=== PATIENT | female | born 1960 | race Caucasian/White ===

== ENCOUNTER 2017-01-22 14:24 | Inpatient (IN) | payer OTHER ==
[~2017-01-22] VITALS: Ht 162.6 cm; Wt 63.5 kg
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
--- NOTE | 2017-01-22 14:54 | NUR ---
CAROLINE DENNISON AT BEDSIDE FOR EVAL.
--- NOTE | 2017-01-22 14:54 | NUR ---
INCONTINENT CARE PROVIDED WHEN PT ARRIVED IN ROOM BELONGINGS PLACED IN BAGS FOR SECURITY WANDING
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
--- NOTE | 2017-01-22 15:28 | NUR ---
BLOOD DRAWN AND SENT
[2017-01-22 15:30] LABS: ABSOLUTE BASOPHIL COUNT 0.1 /CUMM (0.0-0.2); ABSOLUTE EOSINOPHIL COUNT 0.1 /CUMM (0.0-0.7); ABSOLUTE GRANULOCYTE CT 3.3 /CUMM (1.4-6.5); ABSOLUTE LYMPH COUNT 1.9 /CUMM (1.2-3.4); ABSOLUTE MONOCYTE COUNT 0.4 /CUMM (0.10-0.60); BASOPHIL % 1.2 % (0.0-2.0); EOSINOPHIL % 1.8 % (0-5); HEMATOCRIT 40.8 % (37-47); MEAN CORPUSCULAR HGB 31.7 PG (27.0-31.0); MEAN CORPUSCULAR HGB CONC 33.5 G/DL (33.0-37.0); MEAN CORPUSCULAR VOLUME 94.7 FL (81.0-99.0); MEAN PLATELET VOLUME 7.9 FL (7.4-10.4); PLATELET COUNT 286 /CUMM (130-400); RED BLOOD CELL CT 4.31 /CUMM (4.20-5.40); WHITE BLOOD CELL COUNT 5.8 /CUMM (4.8-10.8)
--- NOTE | 2017-01-22 15:57 | NUR ---
SST REDRAWN AND SENT TO LAB BY THIS MST
--- NOTE | 2017-01-22 17:00 | NUR ---
PT GIVEN FOOD TRAY AND 2 SODAS 2 BOTTLES OF WATER
--- NOTE | 2017-01-22 17:24 | NUR ---
PT SLEEPING AT THIS TIME WITH NORMAL RESP.
[2017-01-22 17:27] VITALS: BP 110/70
[2017-01-22 19:04] VITALS: BP 102/51
--- NOTE | 2017-01-22 19:05 | NUR ---
VSS PT TO BE MOVED TO REPORT GIVEN TO GINA CHILD
--- NOTE | 2017-01-22 21:06 | NUR ---
PT MEDICATED WITH MOTRIN 800MG FOR HEADACHE AND ZOFRAN 4MG ODT FOR NAUSEA. PT STATES THAT HER HEADACHE IS 8/10, REPORTS BEING SENSITIVE TO LIGHT AND SOUND, ANXIOUS AND TREMULOUS.
--- NOTE | 2017-01-22 21:26 | NUR ---
PT MEDICATED WITH ATIVAN 2MG FOR WITHDRAWAL SYMPTOMS. PT CALM AND COOPERATIVE, SITTER AT BEDSIDE.
[2017-01-22 22:40] VITALS: BP 138/70
--- NOTE | 2017-01-22 22:45 | NUR ---
PT STATES THAT HER HEADACHE IS BETTER. PT DRINKING ADEQUATE FLUIDS. PT REPORTS HIGH LEVEL OF ANXIETY. PT IS ANTICIPATING ADMISSION.
--- NOTE | 2017-01-22 23:04 | NUR ---
PT HAS BED ASSINGMENT 222-1
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
[2017-01-22] MEDS ORDERED: GABAPENTIN300 M2 PO (23:28)
[2017-01-22] MEDS ORDERED: NEXIUM40 M1 PO (23:28)
[2017-01-22] MEDS ORDERED: LEXAPRO20 M1 PO (23:29)
--- NOTE | 2017-01-22 23:48 | Admission Certification ---
Admission Certification Certification Statement - As attending physician, I certify that at the time of - admission, based on clinical presentation, severity of - symptoms, need for further diagnostic testing and - therapeutic interventions, and risk of adverse outcomes - without in-hospital treatment, in my clinical assessment, - this patient requires an acute hospital stay for a minimum - of two nights or longer. I have also considered psychsocial - factors such as support system, advanced age, financial - issues, cognitive issues, and failed out-patient treatments, - past re-admission history, safety of patient, and lack of - compliance as applicable. Specific rationale supporting this admission is: Alcohol detox.
[2017-01-23] VITALS (14 sets, daily range): BP systolic 108–144; BP diastolic 60–88
--- NOTE | 2017-01-23 02:28 | NUR ---
NURSING NOTE: PT ARRIVED TO [facility] VIA STRETCHER @ 0010. PT ALERT, ORIENTED, CALM, AND COOPERATIVE. NO FAMILY AT BEDSIDE. PT ORIENTED TO STAFF, ROOM, AND CALL [facility]. SCHEDUELED ATIVAN TAPER GIVEN. AWAITING OTHER MEDICATIONS FROM PHARMACY. RN WILL CONTINUE TO MONITOR.
[2017-01-23 08:10] LABS: ABSOLUTE BASOPHIL COUNT 0 /CUMM (0.0-0.2); ABSOLUTE EOSINOPHIL COUNT 0.2 /CUMM (0.0-0.7); ABSOLUTE GRANULOCYTE CT 3.2 /CUMM (1.4-6.5); ABSOLUTE LYMPH COUNT 1.9 /CUMM (1.2-3.4); ABSOLUTE MONOCYTE COUNT 0.5 /CUMM (0.10-0.60); BASOPHIL % 0.3 % (0.0-2.0); EOSINOPHIL % 3.2 % (0-5); GRANULOCYTE % 55.2 % (42.2-75.2); HEMATOCRIT 37.6 % (37-47); MEAN CORPUSCULAR HGB 32.1 PG (27.0-31.0); MEAN CORPUSCULAR HGB CONC 34.1 G/DL (33.0-37.0); MEAN CORPUSCULAR VOLUME 94.1 FL (81.0-99.0); MEAN PLATELET VOLUME 8.1 FL (7.4-10.4); PLATELET COUNT 208 /CUMM (130-400); RBC DISTRIBUTION WIDTH 15.8 % (11.5-14.5); RED BLOOD CELL CT 3.99 /CUMM (4.20-5.40); WHITE BLOOD CELL COUNT 5.7 /CUMM (4.8-10.8)
[2017-01-23 08:30] LABS: PT 9.4 SEC (9.4-12.5)
[2017-01-23] MEDS ORDERED: NEURONTIN300 M1 PO (10:20)
[2017-01-23] MEDS ORDERED: KLONOPIN2 M1 PO (10:20)
--- NOTE | 2017-01-23 10:38 | NUR ---
Referral received this am via electronic customs and border protection officer. This patient is a 56 year old woman, admitted to the hospital last evening for ETOH Detox. Patient is a [employer] member; request for admission authorization requested. Patient has been placed on CIWA; most recently with nausea and vomitting, tremors, anxiety, agitation and headaches. Has received 8.5mg ativan since presentation to the ED last evening. Will follow to better assess aftercare needs; motivation and interest.
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
[2017-01-24] VITALS (11 sets, daily range): BP systolic 110–138; BP diastolic 58–80
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
--- NOTE | 2017-01-24 12:41 | NUR ---
PT UNHAPPY ABOUT CHANGES IN CIWA ATIVAN SLIDING SCALE. FREQUENCY CHANGED TO Q4 THIS AM. PT CONTINUES TO COMPLAIN OF HEADACHES, NAUSEA, AND ANXIETY BUT HAS NO OBJECTIVE SIGNS OF DETOX. NO TREMORS NOTED AND STEADY GAIT, AMBULATING INDEPENDENTLY IN ROOM. PRN IV DOSE GIVEN ORDERED AND DR. TUTTLE PAGED PER PT'S REQUEST. DR. TUTTLE STATES HE WILL COME ASSESS PATIENT. WILL MONITOR.
--- NOTE | 2017-01-24 16:36 | NUR ---
PT AT 1616 CIWA SCORE 12. PT SITTING IN BED LEGS CROSSED. CONVERSING WITH THIS RN. ONCE PATIENT RECIEVED 1 MG IV PT QUESTIONED RN WHY 2MG NOT GIVEN. PTEDUCATED ON PROTOCOL FOR IV ATIVAN. PER PT" WHAT AM I SUPPOSED TO DO TO GET 2MG" PER PT " I WANT TO SEE THE DOCTOR I NEED 2MG" TOURS CAPTAIN CHARLIE CALLED AND NEW CIWA SCORED DONE PER TOURS CAPTAIN . NEW SCORE PER PT STATING INCREASING ANXIETY AND AGITATION OF 21. ADDITIONAL 1 MG GIVEN. TOURS CAPTAIN AWARE . WILL MONITOR
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
[2017-01-25] VITALS (12 sets, daily range): BP systolic 110–130; BP diastolic 60–88
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
--- NOTE | 2017-01-25 11:49 | NUR ---
1135- PT UNHAPPY WITH CHANGES IN ATIVAN ORDERS. DOES NOT WANT DECREASE IN ATIVAN TAPER AND DOES NOT WANT DECREASE IN PRN IV ATIVAN. PT STATES SHE NEEDS ATIVAN 2 MG IV AVAILABLE Q2 HOURS AND WANTS TO SPEAK TO MD. DR. GEOVANI RHODES NOTIFIED OF ABOVE. PER DR. RHODES, TAPER AND PRN ATIVAN CHANGES WERE REVIEWED WITH PT THIS MORNING AND ARE NOT TO BE CHANGED AT THIS TIME. MD TO COME TO BEDSIDE TO DISCUSS AGAIN WITH PT AFTER MORNING MEETING.
--- NOTE | 2017-01-25 13:07 | Event Note ---
Event Note Event Note: Spoke with patient yesterday EXTENSIVELY regarding her treatment regimen. Spent over 45 minutes explaining that Ativan per CIWA must be tapered appropriately and that the purpose of the protocol was to treat alcohol withdrawl and it was not appropriate to over dose medication as it can have deletrious side effects such as respiratory depression, somnolence and can cause dependence. On a q1 CIWA regimen pt had recieved 24.5 mg in IV/PO per combination on 01/23 and I told her that that amount of ativan was inappropriate given her stable vitals and lack of symptoms. She is familiar with the scoring system and upon review of the documentation most of her scores are obtained from subjective criteria. In addition to my counseling, she spoke extensively with attending who counseled similarly. Psych was consulted and they agreed with treatment plan. Today, pt was seen by team and advised that her Ativan would be further tapered. She continues to express her discontentment regarding the change. Her vitals are within normal limits. She is ambulating without instability, little to no tremor. Overnight, she got around 15 mg of Ativan. Plan will to be down further with input from psychiatry. Upon clarification with our colleagues in psychiatry she does indeed have capacity to leave AMA as she has expressed understanding of effects of untreated etoh withdrawl including DT, and seizues.
--- NOTE | 2017-01-25 16:20 | NUR ---
Met with patient again today. Octaviano has received large doses of ativan and becomes demanding when informed about the need to titrate it down. Caroline reports feeling foggy: educated about the fact that the amount of ativan she has received could be the problem.. Caroline has still not called any of the [employer] for which I provided a listing for. Case discussed with Dr. Peterson who supports ativan taper. Follow.
[2017-01-26] VITALS (7 sets, daily range): BP systolic 103–122; BP diastolic 70–80
--- NOTE | 2017-01-26 08:19 | PN- Housestaff ---
GINA PISANO,FELICIA 01/26/17 0819: Subjective Follow-up For: ETOH withdrawl Subjective: Patient seen and examined at bedside. Sitting comfortably in bed but reports not feeling well due to anxiety and Ativan taper. She thinks she needs more Ativan. CIWA for the past 12 hours ranging from 3-15. She also reports a poor appetite due to nausea but is willing to try breakfast after taking Zofran today. Wondering when she will be discharged because she doesn't feel ready leaving until Saturday or Saturday. Denies any headache, sweats, tremors, vomiting, f/c, dyspnea, chest pain, palpitations, dizziness/lightheadedness, abdominal pain. No BM for 1-2 days. She says she'll ask for the bowel regimen if she still doesn't move her bowels after eating. No events reported overnight. Review of Systems Constitutional: Reports: see HPI. Objective Last 24 Hrs of Vital Signs/I&O Vital Signs Date Time Temp Pulse Resp B/P B/P Pulse O2 O2 Flow FiO2 Mean Ox Delivery Rate 01/26 0600 97.9 60 20 103/70 01/26 0600 97.9 60 20 104/70 96 Room Air 01/26 0200 97.8 60 20 110/70 01/25 2238 97.5 53 20 124/88 96 Room Air 01/25 2100 97.9 70 20 130/80 01/25 1800 98.0 68 18 130/80 01/25 1758 98.9 77 20 116/78 97 Room Air 01/25 1600 97.8 64 18 130/82 01/25 1418 97.5 62 20 110/84 92 Room Air 01/25 1120 97.0 63 20 122/60 97 Room Air 01/25 1000 64 124/78 Intake & Output 01/26 1600 01/26 0800 01/26 0000 Intake Total 130 270 Output Total Balance 130 270 Intake, IV 10 30 Intake, Oral 120 240 Physical Exam General Appearance: Alert, No Acute Distress Other Physical Findings: Skin: No Significant Lesion HEENT: Atraumatic, PERRLA, EOMI Neck: Supple Cardiovascular: Regular Rate, Normal S1, Normal S2 Lungs: Clear to Auscultation, Normal Air Movement Abdomen: Soft, No Tenderness Current Medications: Current Medications Sig/Dolly Start time Last Medication Dose Route Stop Time Status Admin Escitalopram Oxalate 30 MG DAILY 01/23 1000 AC 01/26 PO 0814 Folic Acid 1 MG DAILY 01/23 1000 DC 01/25 PO 01/25 1001 1004 Gabapentin 400 MG FOUR TIMES A DAY 01/24 2100 AC 01/26 PO 0814 Lorazepam 0.5 MG Q6H 01/26 0000 DC PO 01/26 1801 Lorazepam 1.5 MG Q6 01/25 1200 AC 01/26 PO 0739 Lorazepam 1 MG Q4 HRS NEEDED PRN 01/24 1030 AC 01/26 IV 0821 Lorazepam 2 MG Q6 01/23 1200 DC 01/25 PO 0618 Multivitamins 1 TAB DAILY 01/23 1000 AC 01/26 PO 0814 Nicotine 21 MG DAILY 01/23 1000 AC 01/26 TOP 0814 Omeprazole 40 MG DAILY AC 01/23 0700 AC 01/26 PO 0740 Thiamine HCl 100 MG DAILY 01/23 1000 DC 01/25 PO 01/25 1001 1004 Trazodone HCl 100 MG AT BEDTIME 01/23 2200 AC 01/25 PO 2111 Assessment/Plan Assessment: This is a 56-year-old female past medical history significant for alcohol abuse, multiple hospital admissions for detox, alcohol withdrawal seizure, last one this a.m. prior to admission, Lyme disease, anxiety, depression, smoking, presented with chief complaint of alcohol detox. Plan 1. EtOH withdrawal: CIWA for the past 12 hours ranging from 3-15 * Cont CIWA protocol * Cont Ativan taper - decrease standing dose to 1mg Q6 * Seizure precautions * Appreciate social work * Appreciate psychiatry consult * During discharge we will consider trial of Campral 2. History of gastric ulcer: Patient states that she has history of black tarry stools. She denies any recent follow-up with a printed circuit boards laminator, she states she does carry a diagnosis of gastric ulcers. * Guaiac all stool * Con't PPI * Zofran PRN 3. History of anxiety and depression: Patient denies any current suicidal or homicidal ideation. She has been seen by inpatient psychiatry and our social service assistant. Home meds include Klonopin, trazodone, gabapentin. * Continue trazodone 100 mg at night * Decrease gabapentin to 400mg TID as patient is c/o confusion and fatigue caused by the high doses * Continue SSRI * NO One-to-one sitter required at this time 4. Smoker: Patient is counseled to smoke. She has been counseled extensively otherwise. * Patch Full code Regular diet Chemical DVT prophylaxis Problem List: 1. ALCOHOL WITHDRAWAL 2. DVT prophylaxis 3. Depression Pain Ratin Pain Location: 0 Pain Goal: Remain pain free Pain Plan: Mild pathway Tomorrow's Labs & Rationales: None BELINDA MELGAR MD 01/26/17 1026: Attending MD Review Statement Attending Statement Attending MD Statement: examined this patient, discuss w/resident/PA/PATTERN GENERATOR OPERATOR, agreed w/resident/PA/PATTERN GENERATOR OPERATOR, reviewed EMR data (avail), discussed with nursing, discussed with case mgmt Attending Assessment/Plan: Patient continues to asked for more and more Ativan despite objectively appearing to be better from alcohol withdrawal. She becomes very adamant and demanding when you explained to her the Ativan taper. We'll keep the Ativan taper per primary team. We are treating alcohol dependence with anxiety and will follow closely.
--- NOTE | 2017-01-26 18:53 | NUR ---
1800- PT REQUESTING ATIVAN. STATES SHE IS NAUSEOUS AND DOES NOT WANT PO ATIVAN, WANTS IV ATIVAN. EXPLAINED TO PT THAT THE ATIVAN TAPER IS PO. WHEN THIS RN WENT TO SCAN PT BRACELET TO ADMINISTER PO ATIVAN, IT WAS NOTED THAT THE PATIENT'S ID BRACELET WAS MISSING. PT STATES, "IT MUST HAVE FALLEN OFF". ASKED PT TO SIT UP AND FOUND BRACELET UNDER PT. BRACELET WAS CUT IN HALF WITH CLEAN EDGES. ASKED PT IF SHE CUT THE BRACELET OFF, WHICH SHE DENIED. ASKED IF SHE HAD SCISSORS, WHICH SHE DENIED. PT STATES "I TOOK A SHOWER TODAY, IT MUST HAVE RIPPED OFF". BRACELET NOTED BY THIS RN TO CLEARLY HAVE BEEN CUT. DR. KURT ALARCON CALLED TO REPORT ABOVE AND TO REQUEST EVALUATION FOR SI/ HI. DR ALARCON TO EVAL PT AT BEDSIDE CHRISTIANNE.
--- NOTE | 2017-01-26 19:01 | NUR ---
1814- DR. ALARCON AT BEDSIDE TO EVAL PT FOR SI/ HI. PER DR ALARCON, THERE IS NO CONCERN FOR SI/HI, ADDITIONALLY, NO NEED FOR FINGER FOOD DIET. PT STATES SHE HAS 13 Y/O DAUGHTER AND DOES NOT WANT TO KILL HERSELF. PT CONTINUES TO STATE THE BRACELET RIPPED APART. QUALITY TECHNICIAN AND RN REQUIREMENTS MANAGER ADVISED OF ABOVE AND SEARCHED PT ROOM FOR SCISSORS, KNIFE. NOTHING FOUND. ATIVAN 1 MG IV GIVEN PER DR. ALARCON. PT VERBALIZED ANNOYANCE THAT THIS RN HAD CALLED MD AND RN REQUIREMENTS MANAGER REGARDING BRACELET. WILL CONTINUE TO MONITOR.
[2017-01-27 02:00] VITALS: BP 100/70
[2017-01-27 06:00] VITALS: BP 94/70
[2017-01-27 07:39] VITALS: BP 94/70
--- NOTE | 2017-01-27 08:55 | PN- Housestaff ---
MEAGAN PISANO,[facility] 01/27/17 0852: Subjective Follow-up For: Etoh detox Subjective: CIWA SCORES-0, 0, 0, 0, 0, 14, 6, 6, 12. Total ativan in 24 hrs 8.5 No acute overnight events. No complaints. Pt is still anxious. She asked many questions regarding dispo planning. I informed her that those decisions would likely have to be discussed in conjuction with pysch and social work as well. Review of Systems Constitutional: Reports: no symptoms. Denies: chills, malaise, weakness. EENTM: Reports: no symptoms. Denies: blurred vision, visual changes. Cardiovascular: Denies: chest pain, peripheral edema. Respiratory: Denies: short of breath. Gastrointestinal: Reports: no symptoms. Genitourinary: Reports: no symptoms. Musculoskeletal: Reports: no symptoms. Skin: Reports: see HPI. Neurological/Psychological: Reports: anxiety, cognitive dysfunction, depressed, emotional problems, headache. Objective Last 24 Hrs of Vital Signs/I&O Vital Signs Date Time Temp Pulse Resp B/P B/P Pulse O2 O2 Flow FiO2 Mean Ox Delivery Rate 01/27 0739 98.2 64 20 94/70 95 Room Air 01/27 0600 98.2 64 20 94/70 01/27 0200 98.2 60 20 100/70 01/26 2205 98.2 60 20 122/80 97 01/26 2200 98.2 60 20 122/80 01/26 1349 99.9 55 20 112/70 96 Room Air Intake & Output 01/27 1600 01/27 0800 01/27 0000 Intake Total 130 500 Output Total Balance 130 500 Intake, IV 10 20 Intake, Oral 120 480 Physical Exam General Appearance: Alert, Oriented X3, Cooperative, No Acute Distress Skin: No Rashes HEENT: Atraumatic, PERRLA, EOMI, Mucous Membr. moist/pink Neck: Supple Cardiovascular: Regular Rate, Normal S1, Normal S2, No Murmurs Lungs: Clear to Auscultation Abdomen: Soft, No Tenderness Neurological: Normal Speech Current Medications: Current Medications Sig/Dolly Start time Last Medication Dose Route Stop Time Status Admin Escitalopram Oxalate 30 MG DAILY 01/23 1000 AC 01/27 PO 1022 Gabapentin 400 MG TID 01/26 1600 AC 01/27 PO 1022 Gabapentin 400 MG FOUR TIMES A DAY 01/24 2100 DC 01/26 PO 0814 Ibuprofen 400 MG Q6P PRN 01/26 1530 AC 01/26 PO 1533 Lorazepam 1 MG BID 01/27 1000 AC 01/27 PO 1022 Lorazepam 1 MG Q6 01/26 1200 DC 01/27 PO 0650 Lorazepam 1 MG Q4 HRS NEEDED PRN 01/24 1030 AC 01/27 IV 1034 Multivitamins 1 TAB DAILY 01/23 1000 AC 01/27 PO 1022 Nicotine 21 MG DAILY 01/23 1000 AC 01/27 TOP 1022 Omeprazole 40 MG DAILY AC 01/23 0700 AC 01/27 PO 0649 Trazodone HCl 100 MG AT BEDTIME 01/23 2200 AC 01/26 PO 2233 Assessment/Plan Assessment: This is a 56-year-old female past medical history significant for alcohol abuse, multiple hospital admissions for detox, alcohol withdrawal seizure, last one prior to admission, Lyme disease, anxiety, depression, smoking, presented with chief complaint of alcohol detox. Plan 1. EtOH withdrawal: CIWA SCORES-0, 0, 0, 0, 0, 14, 6, 6, 12. Total ativan in 24 hrs 8.5 * Cont CIWA protocol * Cont Ativan taper - decrease standing dose to 1mg Q12. Cont' Q6 PRN. Pt is asking for every PRN dose. Ntoe that she does get a hefty amount of Klonopin at home (up to 5 mg). She does have tolerance and likely dependance. We will not go below 5mg ativan today as she will likely withdraw from Klonopin. * Seizure precautions * Appreciate social work * Appreciate psychiatry consult * During discharge we will consider trial of Campral 2. History of gastric ulcer: Patient states that she has history of black tarry stools. She denies any recent follow-up with a taximeter repairer, she states she does carry a diagnosis of gastric ulcers. * Guaiac all stool * Con't PPI * Zofran PRN 3. History of anxiety and depression: Patient denies any current suicidal or homicidal ideation. She has been seen by inpatient psychiatry and our school social worker. Home meds include Klonopin, trazodone, gabapentin. * Continue trazodone 100 mg at night * Decrease gabapentin to 400mg TID as patient is c/o confusion and fatigue caused by the high doses * Continue SSRI * NO One-to-one sitter required at this time 4. Smoker: Patient is counseled to smoke. She has been counseled extensively otherwise. * Patch Full code Regular diet Chemical DVT prophylaxis Problem List: 1. ALCOHOL WITHDRAWAL 2. ALCOHOL WITHDRAWAL SEIZURE Pain Ratin Pain Location: none Pain Goal: Remain pain free Pain Plan: none Tomorrow's Labs & Rationales: none RAMÓN PISANO,BELINDA 01/27/17 1106: Attending MD Review Statement Attending Statement Attending MD Statement: examined this patient, discuss w/resident/PA/RAFTER CUTTING MACHINE OPERATOR, agreed w/resident/PA/RAFTER CUTTING MACHINE OPERATOR, reviewed EMR data (avail), discussed with nursing Attending Assessment/Plan: Pt's main issue appears to be the amount of Ativan she is getting and she spends an inordinate amount of time asking for more and more despite reassuring her about the negative CIWA and the dangers of benzo dependence. She is on an Ativan taper per the primary team. She has a history of anxiety, depression, alcohol abuse and is actively being treated for alcohol withdrawal.
[2017-01-27 14:41] VITALS: BP 140/98
[2017-01-27 21:51] VITALS: BP 120/82
[2017-01-28] VITALS (7 sets, daily range): BP systolic 86–122; BP diastolic 55–78
--- NOTE | 2017-01-28 04:38 | NUR ---
NURSING NOTE: PT MANUAL BP 98/72 HR 48. AUTO CUFF BP 102/66 HR 46. PT ASYMPTOMATIC. DROWSY BUT AROUSABLE. MD KHANH ACEVES AWARE. PER MD RECHECK BP IN 1 HOUR. RN WILL CONTINUE TO MONITOR.
--- NOTE | 2017-01-28 05:45 | NUR ---
NURSING NOTE: PT REPEAT BP 93/55 HR 46. MD KHANH SOUSA AWARE. PER MD, SHE WILL PASS ON TO MORNING TEAM PT IS ASYMPTOMATIC. RN WILL CONTINUE TO MONITOR.
--- NOTE | 2017-01-28 07:33 | PN- Housestaff ---
MEAGAN PISANO,CHARLIE 01/28/17 0732: Subjective Review of Systems Constitutional: Denies: no symptoms. Objective Physical Exam General Appearance: Alert, Oriented X3, No Acute Distress Skin: No Rashes, No Breakdown Skin Temp/Moisture Exam: Warm/Dry Sepsis Skin Exam (color): Normal for Ethnicity HEENT: Atraumatic, PERRLA, EOMI Neck: Supple, No JVD Cardiovascular: Regular Rate, Normal S1, Normal S2 Lungs: Clear to Auscultation, Normal Air Movement Abdomen: Normal Bowel Sounds, Soft, No Tenderness, No Hepatospenomegaly Neurological: Normal Gait, Normal Speech Extremities: No Clubbing, No Cyanosis, No Edema, Normal Pulses Vascular: Normal Pulses, Pulses Symmetrical Sepsis Peripheral Pulse Exam: Normal Assessment/Plan Assessment: This is a 56-year-old female past medical history significant for alcohol abuse, multiple hospital admissions for detox, alcohol withdrawal seizure, last one prior to admission, Lyme disease, anxiety, depression, smoking, presented with chief complaint of alcohol detox. Plan 1. EtOH withdrawal: CIWA SCORES-2, 0, 0, 0, 0, 7, 10. Total ativan in 24 hrs 5.5 * Cont CIWA protocol * Cont Ativan taper -Note that she does get a hefty amount of Klonopin at home ( up to 5 mg). She does have tolerance and likely dependance. Will obtain recs from Psych regarding Taper for today * Seizure precautions * Appreciate social work * Appreciate psychiatry consult * During discharge we will consider trial of Campral 2. History of gastric ulcer: Patient states that she has history of black tarry stools. She denies any recent follow-up with a roll press operator, she states she does carry a diagnosis of gastric ulcers. * Guaiac all stool * Con't PPI * Zofran PRN 3. History of anxiety and depression: Patient denies any current suicidal or homicidal ideation. She has been seen by inpatient psychiatry and our social work professor. Home meds include Klonopin, trazodone, gabapentin. * Continue trazodone 100 mg at night * Gabapentin to 400mg TID as patient is c/o confusion and fatigue caused by the high doses * Continue SSRI * NO One-to-one sitter required at this time 4. Smoker: Patient is counseled to smoke. She has been counseled extensively otherwise. * Patch Full code Regular diet Chemical DVT prophylaxis Problem List: 1. ALCOHOL WITHDRAWAL SEIZURE 2. Alcohol abuse 3. Seizure Pain Ratin Pain Location: none Pain Goal: Remain pain free Pain Plan: none Tomorrow's Labs & Rationales: cbc bep KAI TUTTLE 01/28/17 1331: Subjective Follow-up For: no complaints Review of Systems Constitutional: Denies: no symptoms. EENTM: Denies: no symptoms. Cardiovascular: Denies: no symptoms. Respiratory: Denies: no symptoms. Gastrointestinal: Denies: no symptoms. Genitourinary: Denies: no symptoms. Musculoskeletal: Denies: no symptoms. Skin: Denies: no symptoms. Neurological/Psychological: Denies: no symptoms. Hematologic/Endocrine: Denies: no symptoms. Immunologic/Allergic: Denies: no symptoms. Objective Last 24 Hrs of Vital Signs/I&O stable Physical Exam General Appearance: Alert, Oriented X3, No Acute Distress Skin: No Rashes, No Breakdown Skin Temp/Moisture Exam: Warm/Dry Sepsis Skin Exam (color): Normal for Ethnicity HEENT: Atraumatic, PERRLA, EOMI Neck: Supple, No JVD Cardiovascular: Regular Rate, Normal S1, Normal S2 Lungs: Clear to Auscultation, Normal Air Movement Abdomen: Normal Bowel Sounds, Soft, No Tenderness, No Hepatospenomegaly Neurological: Normal Gait, Normal Speech Extremities: No Clubbing, No Cyanosis, No Edema, Normal Pulses Vascular: Normal Pulses, Pulses Symmetrical Sepsis Peripheral Pulse Exam: Normal Attending MD Review Statement Attending Statement Attending MD Statement: examined this patient, discuss w/resident/PA/JUNIOR ACCOUNTING CLERK, agreed w/resident/PA/JUNIOR ACCOUNTING CLERK, discussed with family, reviewed EMR data (avail), discussed with nursing, discussed with case mgmt, reviewed images, amended to note Attending Assessment/Plan: Pt's main issue appears to be the amount of Ativan she is getting and she spends an inordinate amount of time asking for more and more despite reassuring her about the negative CIWA and the dangers of benzo dependence. She is on an Ativan taper as per moses. She has a history of anxiety, depression, alcohol abuse. mold yard worker on board.
[2017-01-28] MEDS ORDERED: VITAMIN B-1100 MG PO (07:38)
[2017-01-28] MEDS ORDERED: GABAPENTIN400 M2 PO (07:38)
[2017-01-28] MEDS ORDERED: ONE DAILY MULT1 EAC2 PO (07:38)
[2017-01-28] MEDS ORDERED: TRAZODONE HCL100 M1 PO (07:38)
[2017-01-28] MEDS ORDERED: FOLIC ACID1 M1 PO (07:39)
--- NOTE | 2017-01-28 07:41 | Patient Discharge Instructions ---
Discharge Instructions General Discharge Information You were seen/treated for: ALCOHOL WITHDRAWAL Special Instructions: PLEASE F/U WITH YOUR PCP IN1 WEEK PLEASE ABSATIN FROM ALCOHOL If patient is going to continue taking previously prescribed Klonopin and is going to self reduce her dose it is reccomended that the total amount of medication not be reduced by great than 0.25mg every three days. For example if the patient continued to take her previous dose of 3mg a day it would be prudent to first reduce to 0.75mg AM & 1mg noon & 1mg PM for three days then advance to 0.75mg AM & 0.75mg noon & 1mg PM for thre days then continue to 0.75mg AM & 0.75mg noon & 0.75mg PM with continued gradual reduction using that approach. We will continue to encourage patient to allow contact with her outpatient clinicians to ensure continuity of care. Please f/u with [facility] to discuss the Klonopin tapers. Acute Coronary Syndrome Inclusion Criteria At DC or during hospital stay patient has or had the following: ACS DIAGNOSIS No Discharge Core Measures Meds if any: Prescribed or Continued at Discharge Meds if any: NOT Prescribed or Continued at Discharge Congestive Heart Failure Inclusion Criteria At DC or during hospital stay patient has or had the following: CHF DIAGNOSIS No Discharge Core Measures Meds if any: Prescribed or Continued at Discharge Meds if any: NOT Prescribed or Continued at Discharge Cerebrovascular accident Inclusion Criteria At DC or during hospital stay patient has or had the following: CVA/TIA Diagnosis No Discharge Core Measures Meds if any: Prescribed or Continued at Discharge Meds if any: NOT Prescribed or Continued at Discharge Venous thromboembolism Inclusion Criteria VTE Diagnosis No VTE Type NONE VTE Confirmed by (Test) NONE Discharge Core Measures - Per Current guidelines, there needs to be overlap - treatment for the first 5 days of Warfarin therapy. - If discharged on Warfarin prior to 5 days of - overlap therapy, the patient will need to be - assessed for post discharge needs including - *Post discharge parental anticoagulation - *Warfarin and/or parental anticoagulation education - *Follow up date to check INR post discharge At least 5 days overlap therapy as Inpatient No Meds if any: Prescribed or Continued at Discharge Note: Overlap Therapy is Warfarin and Anticoagulant Meds if any: NOT Prescribed or Continued at Discharge
[2017-01-28] MEDS ORDERED: ATIVAN0.5 M1 PO (07:42)
--- NOTE | 2017-01-28 11:04 | PN- Psychiatry ---
Assessment/Plan Impression: Identifying Info: 56-year-old female presents to [facility] emergency department on 01/22/2017 chief complaint of alcohol intoxication and question of ingestion of Listerine. She has a history of alcohol withdrawal with seizure so was admitted to medicine. SUBJECTIVE Patient reports she is "really nervous" related to her future including going to a sober house and her legal issues. She reports in order to gain admission to sober house she will need to taper off her clonazepam within 3 weeks and requests recommendations for taper. Educated patient that she should speak to her prescriber regarding any changes in the home medications. Patient is reluctant to do so and wll not allow this chief underwriter to contact prescriber. Adivsed that any taper needs to be supervised by medical billing clerk. Brief ROS Gait: Steady Sleep: Fair Appetite: Adequate OBJECTIVE Mental Status Exam Presentation/Appearance: Calm. Cooperative with evaluation. Hospital garb. Well groomed Orientation: x4 Sensorium: Awake and alert Eye contact: Appropriate Affect: Blunted, congruent with stated mood Mood: "really nervous" Depression: 07/09 Anxiety: 07/09 Thought Content: - Denies SI/HI, AH/VH, PI. States and also believes they will not kill themselves. - Does report previous SI when intoxicated but no previous attempts - Endorses Hopeless/Helpless/guilty Thoughts Thought Process: Linear Speech: normal tone and rate, articulate Judgment: Fair Insight: Fair Cognition: Memory: Grossly intact, endorses some black outs Attention/Concentration:Grossly intact ASSESSMENT 56-year-old female with a long history of alcohol use disorder with a pattern of frequent remission relapse presents for alcohol detox. She is experiencing continued anxiety, guilt, and depression. She would benefit from continued hospitalization and future medication to help with alcohol cravings. Differential diagnosis Alcohol use disorder, severe Unspecified mood or anxiety disorder versus alcohol-induced mood or anxiety disorder Rule out unspecified trauma or stressor related disorder Rule out unspecified personality disorder Suggestion: 1. Continue CIWA protocol and medicate appropriately as ordered with focus on objective signs and symptoms of alcohol or benzodiazepine withdrawal. Continue to advance ativan taper. 2. Continue vitamin supplementation. 3. Pt eucated benzodiazepine withdrawal potential consequences including seizure and verbalizes understanding this as well as signs and symptoms of withdrawal and when to seek emergency care. 4. Please order hydroxyzine 25mg 3 times a day when necessary for anxiety. 5. If patient is going to continue taking previously prescribed Klonopin and is going to self reduce her dose it is reccomended that the total amount of medication not be reduced by great than 0.25mg every three days. For example if the patient continued to take her previous dose of 3mg a day it would be prudent to first reduce to 0.75mg AM & 1mg noon & 1mg PM for three days then advance to 0.75mg AM & 0.75mg noon & 1mg PM for thre days then continue to 0.75mg AM & 0.75mg noon & 0.75mg PM with continued gradual reduction using that approach. We will continue to encourage patient to allow contact with her outpatient clinicians to ensure continuity of care. 6. Appreciate social work assistance in disposition planning. Thank you for including psychiatry in this case we'll continue to follow Subjective Subjective: as above Objective Last 24 Hrs of Vital Signs/I&O Current Medications Sig/Dolly Start time Last Medication Dose Route Stop Time Status Admin Escitalopram Oxalate 30 MG DAILY 01/23 1000 AC 01/28 PO 09 Gabapentin 400 MG FOUR TIMES A DAY PRN 01/27 1223 AC 01/28 PO 0901 Gabapentin 400 MG TID 01/26 1600 DC 01/27 PO 1022 Ibuprofen 400 MG Q6P PRN 01/26 1530 AC 01/26 PO 1533 Lorazepam 0.5 MG BID 01/28 1000 AC 01/28 PO 02/04 0959 0901 Lorazepam 1 MG Q6 01/27 1800 CAN IV Lorazepam 1 MG Q6 01/27 1800 CAN IV Lorazepam 0 Q6P PRN 01/27 1600 DC IV Lorazepam 0 Q4P PRN 01/27 1530 DC 01/27 IV 2016 Lorazepam 1 MG BID 01/27 1000 DC 01/27 PO 2107 Lorazepam 1 MG Q4 HRS NEEDED PRN 01/24 1030 DC 01/27 IV 1034 Multivitamins 1 TAB DAILY 01/23 1000 AC 01/28 PO 0901 Nicotine 21 MG DAILY 01/23 1000 AC 01/27 TOP 1022 Omeprazole 40 MG DAILY AC 01/23 0700 AC 01/28 PO 0646 Trazodone HCl 100 MG AT BEDTIME 01/23 2200 AC 01/27 PO 2159 Vital Signs Date Time Temp Pulse Resp B/P B/P Pulse O2 O2 Flow FiO2 Mean Ox Delivery Rate 05/01 1045 97.0 57 20 122/60 96 Room Air 01/28 0840 60 100/70 01/28 0727 97.7 46 20 86/58 97 Room Air 01/28 0545 46 93/55 01/28 0431 97.7 46 20 86/58 97 Room Air 01/27 2151 97.9 62 20 120/82 96 01/27 1441 97.7 59 20 140/98 97 Intake & Output 01/28 1600 01/28 0800 01/28 0000 Intake Total 250 360 Output Total Balance 250 360 Intake, IV 10 Intake, Oral 240 360 Number 0 0 Bowel Movements
--- NOTE | 2017-01-28 14:01 | Discharge Summary ---
Visit Information Visit Dates Admission Date: 01/22/17 Discharge Date: 01/30/17 Hospital Course Course Attending Physician: KAI TUTTLE MD Primary Care Physician: PATIENT HAS NO PRIMARY CARE DR Hospital Course: This is a 56-year-old female past medical history significant for alcohol abuse, multiple hospital admissions for detox, alcohol withdrawal seizure-last one prior to admission, Lyme disease, anxiety, depression, smoking, presented with chief complaint of alcohol detox. Has significant social stressors including impending homelessness and lack of financial resources. Pt was seen for the following problems in hospital: 1. EtOH withdrawal: In hospital pt was guided through a successful etoh withdrawl protocol. She completed her course of ativan. Nte that she was discharged WITHOUT any Benzos from hospital. However, she is being prescribed Klonopin from an outside VETERINARY PHARMACOLOGIST provider whom she has forbidden us to contact. We have repeatedly counseled pt against mixing benzos and etoh and we have asked her to allow us to discuss her care with her outside [facility] provider, however, she continues to bar access. * COMPLETED Ativan taper per BILL for ETOH detox * Seizure precautions * Appreciate social work * Appreciate psychiatry consult * Pt dc to a [facility] * She has been educated that 2. History of gastric ulcer: Patient states that she has history of black tarry stools. She denies any recent follow-up with a benefits officer, she states she does carry a diagnosis of gastric ulcers. No BRBPR and no bleeding noted in hospital. Follow up outpatient. * Con't PPI * Zofran PRN 3. History of anxiety and depression: Patient denies any current suicidal or homicidal ideation. She has been seen by inpatient psychiatry and our social security assessor. Home meds include Klonopin, trazodone, gabapentin. * Continue trazodone 100 mg at night * Gabapentin to 300mg TID as patient * Continue SSRI * Started Atarax 25mg tid on 01/28/2017 4. Smoker: Patient is counseled to quit smoking. * Patch in hospital 5. Benzodiazepine Dependence: Patient is prescribed Klonopin by an outside psychiatric VETERINARY PHARMACOLOGIST provider. She takes up to 6 mg a day according to the patient. She refuses any of the hospital providers access to her outside provider. She expressly has forbidden any contact. Patient has been drinking heavily and was brought in for alcohol detox. It is doubtful that her VETERINARY PHARMACOLOGIST knows of her continued consumption of alcohol. We have warned patient that combination of alcohol and benzos could produce life threatening respiratory depression. The patient has also had a history of alcohol withdrawal seizures. Patient has been counseled against taking benzos for anxiety. She states that she would be interested in tapering off. However since we are not the prescribers we are unable to change the scheduling of her prescription. She will likely continue to receive the Klonopin from her outside VETERINARY PHARMACOLOGIST provider. Counseled her to follow-up with her outside provider for a safe taper off the medication. Our psychiatric provider in the hospital has suggested the start of the taper to prevent patient from completely stopping and inducing life-threatening withdrawal. Allergies: Coded Allergies: diphenhydramine (Mild, HEART RACES, RASH 01/22/17) Disposition Summary Disposition Principal Diagnosis: Etoh detox Additional Diagnosis: Benzo dependence Discharge Disposition: custodial house Discharge Instructions General Discharge Information Code Status: Full Code Patient's Diet: as tolerated Patient's Activity: as tolerated Follow-Up Instructions/Appts: see above Medications at Discharge Discharge Medications: Stop taking the following medications: Gabapentin (Gabapentin) 300 MG CAPSULE ORAL TWICE DAILY Continue taking these medications: Esomeprazole (Nexium) 40 MG CAPSULE.DR 1 Capsule ORAL DAILY Comments: DID NOT RECEIVE IN HOSPITAL Escitalopram Oxalate (Lexapro) 20 MG TABLET 1.5 Tablet ORAL DAILY Comments: Last Taken:01/30/17 Time:08:10 AM Clonazepam (Klonopin) 2 MG TABLET 1 Tablet ORAL 2 x Daily as needed as needed for anxiety Comments: NOT GIVEN IN HOSP. ATIVAN GIVEN IN HOSP Start taking the following new medications: Gabapentin (Gabapentin) 400 MG CAPSULE 400 Milligram ORAL 4 TIMES A DAY as needed for ANXIETY Qty = 30 No Refills Comments: Last Taken:01/30/17 Time:0800 Multivitamin (One Daily Multivitamin) 1 EACH TABLET 1 Tablet ORAL DAILY Qty = 30 No Refills Comments: Last Taken:01/30/17 Time:0800 Hydroxyzine HCl (Hydroxyzine HCl) 25 MG TABLET 25 Milligram ORAL THREE TIMES DAILY as needed for ANXIETY Days = 30 No Refills Comments: Last Taken:01/30/17 Time:0900 Trazodone HCl (Trazodone HCl) 100 MG TABLET 100 Milligram ORAL AT BEDTIME Qty = 30 No Refills Comments: Last Taken:01/29/17 Time:2100 Thiamine HCl (Vitamin B-1) 100 MG TABLET 1 Tablet ORAL DAILY Qty = 30 No Refills Comments: DID NO0T RECIEVE IN HOSPITAL Folic Acid (Folic Acid) 1 MG TABLET 1 Tablet ORAL DAILY Qty = 30 No Refills Comments: DID NOT GET IN HOSPITAL Copies To: DIYA PISANO,CARIDAD
--- NOTE | 2017-01-28 15:00 | NUR ---
Met with patient again this am, in the presence of psychiatric FLOORWORKER DISTRIBUTOR, Antione Palacio. [facility], and has a call into [facility] in [place], [place]. Caroline signed an aothorization for medical record release, and appropriate clinical was FAXED on her behalf. Concurrent clinical review done with [facility] who have authorized 3 more units 01/28-01/30. Patient notified. Patient reports that she has spoken with health and safety representative at [facility] who have received clinical data. Await decision. Follow.
[2017-01-29] VITALS (8 sets, daily range): BP systolic 13–130; BP diastolic 60–80
[2017-01-29] MEDS ORDERED: HYDROXYZINE HCL25 M2 PO (07:53)
--- NOTE | 2017-01-29 08:00 | PN- Housestaff ---
MEAGAN PISANO,[facility] 01/29/17 0756: Subjective Follow-up For: etoh withdrawl Subjective: saw pt at bedside this AM. She continues to endorse anxiety about upcoming discharge to assisted house. No acute overnight events. CIWA: 0/0/0/ Review of Systems Constitutional: Denies: chills, fever, weakness. EENTM: Denies: blurred vision. Cardiovascular: Denies: chest pain, palpitations. Respiratory: Denies: cough, short of breath. Gastrointestinal: Reports: no symptoms. Genitourinary: Reports: no symptoms. Musculoskeletal: Reports: no symptoms. Skin: Reports: no symptoms. Objective Last 24 Hrs of Vital Signs/I&O Vital Signs Date Time Temp Pulse Resp B/P B/P Pulse O2 O2 Flow FiO2 Mean Ox Delivery Rate 01/29 0630 98.4 52 18 108/66 97 Room Air 01/28 2237 98.1 53 20 110/60 96 Room Air 01/28 1412 97.8 60 20 118/78 97 Room Air 01/28 1045 97.0 57 20 122/60 96 Room Air 01/28 0840 60 100/70 Intake & Output 01/29 0800 01/29 0000 01/28 1600 Intake Total 200 600 Output Total Balance 200 600 Intake, Oral 200 600 Number 0 Bowel Movements Physical Exam General Appearance: Alert, Oriented X3, Cooperative, No Acute Distress HEENT: Atraumatic, PERRLA, EOMI, Mucous Membr. moist/pink Neck: Supple Cardiovascular: Regular Rate, Normal S1, Normal S2 Lungs: Normal Air Movement Abdomen: Soft, No Tenderness Neurological: Normal Gait, Normal Speech, Strength at 5/5 X4 Ext, Sensation Intact, Cranial Nerves 3-12 NL Extremities: No Clubbing, No Cyanosis, No Edema Current Medications: Current Medications Sig/Dolly Start time Last Medication Dose Route Stop Time Status Admin Escitalopram Oxalate 30 MG DAILY 01/23 1000 AC 01/28 PO 09 Gabapentin 400 MG FOUR TIMES A DAY PRN 01/27 1223 AC 01/28 PO 213 Hydroxyzine HCl 25 MG TID PRN 01/28 1158 AC 01/28 PO 195 Ibuprofen 400 MG Q6P PRN 01/26 1530 AC 01/26 PO 1533 Lorazepam 0.5 MG BID 01/28 1000 AC 01/28 PO 02/04 0959 1950 Lorazepam 0 Q4P PRN 01/27 1530 DC 01/27 IV 2016 Multivitamins 1 TAB DAILY 01/23 1000 AC 01/28 PO 0901 Nicotine 21 MG DAILY 01/23 1000 AC 01/28 TOP 1609 Omeprazole 40 MG DAILY AC 01/23 0700 AC 01/29 PO 0629 Patient Medication 1 ED .STK-MED ONE 01/28 1359 DC Teaching ED 01/28 1400 Trazodone HCl 100 MG AT BEDTIME 01/23 2200 01/28 PO 2139 Assessment/Plan Assessment: This is a 56-year-old female past medical history significant for alcohol abuse, multiple hospital admissions for detox, alcohol withdrawal seizure, last one prior to admission, Lyme disease, anxiety, depression, smoking, presented with chief complaint of alcohol detox. Plan 1. EtOH withdrawal: CIWA SCORES-0/0/0. Total ativan in 24 hrs 1 MG. * Cont CIWA protocol * Cont Ativan taper * Seizure precautions * Appreciate social work * Appreciate psychiatry consult * During discharge we will consider trial of Campral * Possible d/c today? 2. History of gastric ulcer: Patient states that she has history of black tarry stools. She denies any recent follow-up with a miter cutter, she states she does carry a diagnosis of gastric ulcers. * Guaiac all stool * Con't PPI * Zofran PRN 3. History of anxiety and depression: Patient denies any current suicidal or homicidal ideation. She has been seen by inpatient psychiatry and our social scientist. Home meds include Klonopin, trazodone, gabapentin. * Continue trazodone 100 mg at night * Gabapentin to 400mg TID as patient is c/o confusion and fatigue caused by the high doses * Continue SSRI * Started Atarax 25mg tid on 01/28/2017 * NO One-to-one sitter required at this time 4. Smoker: Patient is counseled to quit smoking. * Patch Full code Regular diet Chemical DVT prophylaxis Problem List: 1. ALCOHOL WITHDRAWAL SEIZURE 2. ALCOHOL WITHDRAWAL 3. Alcohol abuse Pain Ratin Pain Location: none Pain Goal: Remain pain free Pain Plan: none Tomorrow's Labs & Rationales: cbc bep DVT/Prophylaxis: pharmacological KAI TUTTLE 01/29/17 1216: Attending MD Review Statement Attending Statement Attending MD Statement: examined this patient, discuss w/resident/PA/ORACLE DATA WAREHOUSE DEVELOPER, agreed w/resident/PA/ORACLE DATA WAREHOUSE DEVELOPER, discussed with family, reviewed EMR data (avail), discussed with nursing, discussed with case mgmt, reviewed images, amended to note Attending Assessment/Plan: Pt's main issue appears to be the amount of Ativan she is getting and she spends an inordinate amount of time asking for more and more despite reassuring her about the negative CIWA and the dangers of benzo dependence. She is on an Ativan taper as per moses. She has a history of anxiety, depression, alcohol abuse. dry mill worker on board.
[2017-01-29] MEDS ORDERED: TRAZODONE HCL100 M1 PO ×2 (13:06→13:31)
--- NOTE | 2017-01-29 13:38 | PN- Psychiatry ---
Assessment/Plan Impression: Identifying Info: 56-year-old female presents to [facility] emergency department on 01/22/2017 chief complaint of alcohol intoxication and question of ingestion of Listerine. She has a history of alcohol withdrawal with seizure so was admitted to medicine. SUBJECTIVE Pt reports anxiety r/t discharge and not having enough medication. Requests 30 day supply. Verbalizes understanding that we will write orders for non- narcotics. Encouraged pt to speak with [facility] perscriber or allow this conventional mortgage underwriter r/t taper which she declines. Brief ROS Gait: Steady Sleep: Fair Appetite: Adequate OBJECTIVE Mental Status Exam Presentation/Appearance: Calm. Cooperative with evaluation. Hospital garb. Well groomed Orientation: x4 Sensorium: Awake and alert Eye contact: Appropriate Affect: Blunted but with increased range, congruent with stated mood Mood: Anxious Depression: Decreased Anxiety: Endorses Thought Content: - Denies SI/HI, AH/VH, PI. States and also believes they will not kill themselves. - Endorses Hopeless/Helpless/guilty Thoughts Thought Process: Linear Speech: normal tone and rate, articulate Judgment: Fair Insight: Fair Cognition: Memory: Grossly intact, endorses some black outs Attention/Concentration:Grossly intact ASSESSMENT 56-year-old female with a long history of alcohol use disorder with a pattern of frequent remission relapse presents for alcohol detox. She is experiencing continued anxiety, guilt, and depression would benefit from continued psychotropic medication. Differential diagnosis Alcohol use disorder, severe Unspecified mood or anxiety disorder versus alcohol-induced mood or anxiety disorder Rule out unspecified trauma or stressor related disorder Rule out unspecified personality disorder Suggestion: 1. Please discharge pt with trazodone, lexapro, gabapentin, and atarax as currently ordered. 2. Appreciate social work assistance in disposition planning. 3. Pt to follow up with previous prescriber and therapist post discharge, declines to allow communication with providers. Thank you for including psychiatry, we will sign off on this case. Please page 100 if further psychiatric needs. Subjective Subjective: as above Objective Last 24 Hrs of Vital Signs/I&O Current Medications Sig/Dolly Start time Last Medication Dose Route Stop Time Status Admin Escitalopram Oxalate 30 MG DAILY 01/23 1000 AC 01/29 PO 0918 Gabapentin 400 MG FOUR TIMES A DAY PRN 01/27 1223 AC 01/29 PO 1210 Hydroxyzine HCl 25 MG TID PRN 01/28 1158 AC 01/29 PO 1310 Ibuprofen 400 MG Q6P PRN 01/26 1530 AC 01/26 PO 1533 Lorazepam 0.5 MG BID 01/28 1000 AC 01/29 PO 02/04 0959 0918 Multivitamins 1 TAB DAILY 01/23 1000 AC 01/29 PO 0918 Nicotine 21 MG DAILY 01/23 1000 AC 01/29 TOP 0936 Omeprazole 40 MG DAILY AC 01/23 0700 AC 01/29 PO 0629 Patient Medication 1 ED .STK-MED ONE 01/28 1359 DC Teaching ED 01/28 1400 Trazodone HCl 100 MG AT BEDTIME 01/23 2200 AC 01/28 PO 2139 Vital Signs Date Time Temp Pulse Resp B/P B/P Pulse O2 O2 Flow FiO2 Mean Ox Delivery Rate 01/29 630 98.4 52 18 108/66 97 Room Air 01/287 98.1 53 20 110/60 96 Room Air 01/28 1412 97.8 60 20 118/78 97 Room Air Intake & Output 01/29 1600 01/29 0800 01/29 0000 Intake Total 100 200 Output Total Balance 100 200 Intake, Oral 100 200
--- NOTE | 2017-01-29 14:05 | NUR ---
Patient has a bed offer at [facility] ([facility]) for tomorrow. Octaviano reports to me that she will be picked up early in the morning +/-9:00am. Case discussed with Dr. Peterson who supports plan and has written prescriptions which will get filled today.
[2017-01-30 02:00] VITALS: BP 100/60
[2017-01-30 04:00] VITALS: BP 100/60
[2017-01-30 06:00] VITALS: BP 100/60
[2017-01-30 06:28] VITALS: BP 120/80
[2017-01-30] MEDS ORDERED: TRAZODONE HCL100 M1 PO (07:30)
--- NOTE | 2017-01-30 07:31 | PN- Housestaff ---
Subjective Follow-up For: Etoh withdrawl Subjective: Saw pt at bedside. She was asleep, but rousable. She stated that she was ready to go to the long-term house today. No acute overnight events or complaints. Review of Systems Constitutional: Reports: no symptoms. Objective Last 24 Hrs of Vital Signs/I&O Vital Signs Date Time Temp Pulse Resp B/P B/P Pulse O2 O2 Flow FiO2 Mean Ox Delivery Rate 01/30 0628 97.6 49 20 120/80 99 Room Air 01/30 0600 98.1 63 20 100/60 05/03 0400 98.1 60 20 100/60 05/03 0200 98.1 60 20 100/60 05/02 2219 98.1 60 20 100/60 97 /02 2200 97.5 60 20 120/80 / 2000 97.5 52 20 120/80 /02 1926 60 120/80 / 1800 97.5 52 20 13/80 05/02 1600 97.5 52 20 130/80 05/02 1523 97.5 52 20 130/80 97 Intake & Output 01/30 0800 01/30 0000 01/29 1600 Intake Total 450 550 Output Total Balance 450 550 Intake, IV 0 Intake, Oral 450 550 Number 0 Bowel Movements Physical Exam General Appearance: Alert, Oriented X3, Cooperative, No Acute Distress Skin: No Significant Lesion HEENT: Atraumatic, PERRLA, EOMI, Mucous Membr. moist/pink Neck: Supple Cardiovascular: Regular Rate, Normal S1, Normal S2 Lungs: Normal Air Movement Abdomen: Soft, No Tenderness Neurological: Normal Speech Extremities: No Clubbing, No Edema, Normal Pulses Current Medications: Current Medications Sig/Dolly Start time Last Medication Dose Route Stop Time Status Admin Escitalopram Oxalate 30 MG DAILY 01/23 1000 AC 01/29 PO 0918 Gabapentin 400 MG FOUR TIMES A DAY PRN 01/27 1223 AC 01/29 PO 210 Hydroxyzine HCl 25 MG ONCE ONE 01/29 1630 DC 01/29 PO 01/29 1631 1710 Hydroxyzine HCl 25 MG TID PRN 01/28 1158 AC 01/29 PO 210 Ibuprofen 400 MG Q6P PRN 01/26 1530 AC 01/26 PO 153 Lorazepam 0.5 MG BID 01/28 1000 AC 01/29 PO 02/04 0959 2101 Multivitamins 1 TAB DAILY 01/23 1000 AC 01/29 PO 0918 Nicotine 21 MG DAILY 01/23 1000 AC 01/29 TOP 0936 Omeprazole 40 MG DAILY AC 01/23 0700 AC 01/29 PO 0629 Trazodone HCl 100 MG AT BEDTIME 01/23 2200 AC 01/29 PO 2101 Assessment/Plan Assessment: This is a 56-year-old female past medical history significant for alcohol abuse, multiple hospital admissions for detox, alcohol withdrawal seizure, last one prior to admission, Lyme disease, anxiety, depression, smoking, presented with chief complaint of alcohol detox. Plan 1. EtOH withdrawal: * Cont CIWA protocol * COMPLETED Ativan taper * Seizure precautions * Appreciate social work * Appreciate psychiatry consult * d/c TODAY 2. History of gastric ulcer: Patient states that she has history of black tarry stools. She denies any recent follow-up with a grader meat, she states she does carry a diagnosis of gastric ulcers. * Guaiac all stool * Con't PPI * Zofran PRN 3. History of anxiety and depression: Patient denies any current suicidal or homicidal ideation. She has been seen by inpatient psychiatry and our social worker psychiatric. Home meds include Klonopin, trazodone, gabapentin. * Continue trazodone 100 mg at night * Gabapentin to 400mg TID as patient is c/o confusion and fatigue caused by the high doses * Continue SSRI * Started Atarax 25mg tid on 01/28/2017 * NO One-to-one sitter required at this time 4. Smoker: Patient is counseled to quit smoking. * Patch Full code Regular diet Chemical DVT prophylaxis Problem List: 1. Alcohol dependence with withdrawal 2. Seizure 3. Alcohol abuse Pain Ratin Pain Location: NONE Pain Goal: Remain pain free Pain Plan: NONE Tomorrow's Labs & Rationales: NONE DVT/Prophylaxis: pharmacological
== END 2017-01-30 10:12 | DRG 775 ==
LOC: ERH 14:24 → 2NA 21:18 → ERHI 21:18 → ENRESERV 22:53 → 2NA 01-23 00:15 → ENPENDDIS 01-30 07:45 → 2NA 01-30 10:12
PROVIDERS: Internal Medicine; Physician Assistant; ADMIT Student in an Organized Health Care Education/Training Program
DX: F10.239 Alcohol dependence with withdrawal, unspecified (principal); F10.229 Alcohol dependence with intoxication, unspecified; Y90.8 Blood alcohol level of 240 mg/100 ml or more; Z87.11 Personal history of peptic ulcer disease; F41.8 Other specified anxiety disorders; F17.200 Nicotine dependence, unspecified, uncomplicated; K21.9 Gastro-esophageal reflux disease without esophagitis
CPT/HCPCS: 2NAP; ERO; 80307; 82436; G0480; J3101; J3490

== ENCOUNTER 2017-12-12 18:15 | Inpatient (IN) | payer OTHER ==
[~2017-12-12] VITALS: Ht 162.6 cm; Wt 61.7 kg
[~2017-12-12 18:15] MED LIST: ATIVAN0.5 M1 PO; FOLIC ACID1 M1 PO; GABAPENTIN300 M2 PO; GABAPENTIN400 M2 PO; HYDROXYZINE HCL25 M2 PO; KLONOPIN2 M1 PO; LEXAPRO20 M1 PO; NEURONTIN300 M1 PO; NEXIUM40 M1 PO; ONE DAILY MULT1 EAC2 PO; TRAZODONE HCL100 M1 PO; VITAMIN B-1100 MG PO
--- NOTE | 2017-12-12 20:04 | ED PSYCHIATRIC COMPLAINT ---
See Addendum History of Present Illness General Chief Complaint: ETOH/Drug Related Complaint Stated Complaint: ETOH Source: patient Exam Limitations: poor historian Vital Signs & Intake/Output Vital Signs & Intake/Output Vital Signs Date Time Temp Pulse Resp B/P B/P Pulse O2 O2 Flow FiO2 Mean Ox Delivery Rate 12/13 1059 98.5 85 16 147/71 12/13 0913 99.0 62 18 153/75 96 Room Air 12/13 0703 99.0 73 18 141/83 12/13 0702 99.0 73 18 141/83 94 Room Air 12/13 0550 98.6 74 18 150/78 12/13 0550 98.6 74 18 150/78 95 Room Air 12/13 0432 99.0 78 20 157/78 12/13 0432 99.0 78 20 157/78 95 / 0208 98.8 90 20 146/84 12/13 0207 98.8 90 20 146/84 97 Room Air 12/12 2200 98.2 70 18 130/84 12/12 2140 98.2 70 18 130/84 96 Room Air 12/12 2111 98.3 78 18 134/74 12/12 1835 98.0 73 18 134/94 96 Room Air ED Intake and Output 12/13 0000 12/12 1200 Intake Total Output Total Balance Patient 160 lb Weight Weight Reported by Patient Measurement Method Allergies Coded Allergies: diphenhydramine (Mild, HEART RACES, RASH 01/22/17) Reconcile Medications Clonazepam (Klonopin) 2 MG TABLET 1 TAB PO BIDP PRN anxiety (Reported) Escitalopram Oxalate (Lexapro) 20 MG TABLET 1.5 TAB PO DAILY DEPRESSION ( Reported) Esomeprazole (Nexium) 40 MG CAPSULE.DR 1 CAP PO DAILY GERD (Reported) Folic Acid 1 MG TABLET 1 TAB PO DAILY SUPPLEMENT Gabapentin 400 MG CAPSULE 400 MG PO FOUR TIMES A DAY PRN ANXIETY Hydroxyzine Hydrochloride (Atarax) 25 MG TABLET 25 MG PO TID PRN ANXIETY Multivitamin (One Daily Multivitamin) 1 EACH TABLET 1 TAB PO DAILY SUPLEMENT Thiamine HCl (Vitamin B-1) 100 MG TABLET 1 TAB PO DAILY SUPPLEMENT Trazodone HCl 100 MG TABLET 100 MG PO AT BEDTIME sleep Triage Note: PT STATES SHE HAD TWO SEIZURES FROM DETOXING FROM ETOH. PT ADMITS TO DRINKING 2 DRINKS TODAY VODKA AND GINGERALE. PT LAST DETOX WAS "NOT LONG AGO". PT STATES SHE WAS AT [facility]. PT DENIES DRUG USE PT DENIES SI/HI AT THIS TIME. Triage Nurses Notes Reviewed? yes HPI: Patient presents for evaluation of withdrawal seizures. Patient states that she drinks a bottle of vodka daily and was detoxed 2 weeks ago. She states within the past 2 weeks she has suffered the of 2 family members one of whom was her . (Jahaira PISANO,Jakob Bullock) Past History Travel History Traveled to [place] past 21 day No Medical History Any Pertinent Medical History? see below for history Neurological: seizure EENT: NONE Cardiovascular: NONE Respiratory: NONE Gastrointestinal: gastric ulcer Hepatic: NONE Renal: NONE Musculoskeletal: NONE Psychiatric: alcohol dependence Endocrine: NONE Blood Disorders: NONE Cancer(s): NONE TRAM OPERATOR/Reproductive: NONE History of MRSA: No History of VRE: No History of CDIFF: No Influenza Vaccine: 12/19/12 Surgical History Surgical History: non-contributory Psychosocial History Who do you live with Brother Services at Home None What is your primary language Hebrew Tobacco Use: Current Daily Use Daily Tobacco Use Amount/Type: => 5 Cigarettes daily ETOH Use: alcoholic Illicit Drug Use: denies illicit drug use Family History Family History, If Any: MOTHER (some cancer). FATHER (Alcohol abuse). Hx Contributory? No (Jahaira PISANO,Jakob Bullock) Review of Systems Review of Systems Constitutional: Reports: no symptoms. EENTM: Reports: no symptoms. Respiratory: Reports: no symptoms. Cardiovascular: Reports: no symptoms. GI: Reports: no symptoms. Genitourinary: Reports: no symptoms. Musculoskeletal: Reports: no symptoms. Skin: Reports: no symptoms. Neurological/Psychological: Reports: see HPI. Hematologic/Endocrine: Reports: no symptoms. Immunologic/Allergic: Reports: no symptoms. All Other Systems: Reviewed and Negative (Jahaira PISANO,Jakob Bullock) Physical Exam Physical Exam General Appearance: SEE BELOW Neurological/Psychiatric: SEE BELOW Comments: General: Alert, calm, cooperative Head: Normocephalic, atraumatic Eyes: Normal inspection, no nystagmus, EOMI Ears: Normal inspection Nose: Normal inspection Throat: Moist mucosa Neck: Supple, no goiter Heart: Regular rate and rhythm, no murmurs rubs or gallops Lungs: Clear to auscultation bilaterally with good air entry Abdomen: Soft nontender nondistended, normal bowel sounds Chest: Nontender Extremities: Normal range of motion grossly, no tremors present, no cyanosis clubbing or edema of the upper extremities Neurologic: cranial nerves II through XII grossly intact, speech clear, gait normal Psychiatric: No apparent delusions or hallucinations, no pressured speech or thought blocking SAD PERSONS Done? patient not suicidal (Jahaira PISANO,Jakob Bullock) Progress Differential Diagnosis: drug intoxication, drug withdrawal, electrolyte abnormality, hypoglycemia Plan of Care: Orders Procedure Date/time Status Continuous Observation Monitor 12/13 113 Active CASE MANAGEMENT CONSULT 12/13 441 Active Pathway - chart 12/13 440 Active Patient Safety Monitor 12/13 2003 Active CIWA 12/12 1914 Active URINE 12/12 1849 Complete URINE DRUG SCREEN FOR ER ONLY 12/12 1849 Complete URINALYSIS 12/12 1849 Complete ETHANOL 12/12 1849 Complete COMPREHENSIVE METABOLIC PANEL 12/12 1849 Complete CBC WITHOUT DIFFERENTIAL 12/12 1849 Complete Current Medications Sig/Dolly Start time Last Medication Dose Stop Time Status Admin Lorazepam 2 MG Q2P PRN 12/13 444 AC (Ativan) Lorazepam 1 MG Q2P PRN 12/13 044 AC 12/13 (Ativan) 0559 Laboratory Tests 12/12/172105: Anion Gap 15, Estimated GFR > 60, BUN/Creatinine Ratio 8.8, Glucose 96, Calcium 9.3, Total Bilirubin 0.6, AST 88 H, ALT 94 H, Alkaline Phosphatase 60, Total Protein 7.4, Albumin 4.6, Globulin 2.8, Albumin/Globulin Ratio 1.6, CBC w Diff NO MAN DIFF REQ, RBC 3.58 L, MCV 104.1 H, MCH 35.1 H, MCHC 33.7, RDW 18.0 H, MPV 7.7, Gran % 75.4 H, Lymphocytes % 17.6 L, Monocytes % 4.6, Eosinophils % 1.5, Basophils % 0.9, Absolute Granulocytes 4.3, Absolute Lymphocytes 1.0 L, Absolute Monocytes 0.3, Absolute Eosinophils 0.1, Absolute Basophils 0, Serum Alcohol 259.0 12/12/171921: Urine Opiates Screen < 100, Methadone Screen 42, Barbiturate Screen < 60, Ur Phencyclidine Scrn < 6.00, Amphetamines Screen < 100, U Benzodiazepines Scrn 151 , Urine Cocaine Screen < 50, Urine Cannabis Screen < 5.00, Urine Color YEL, Urine Clarity CLEAR, Urine pH 6.5, Ur Specific [place] <= 1.005, Urine Protein 30 H, Urine Ketones NEG, Urine Nitrite NEG, Urine Bilirubin NEG, Urine Urobilinogen 0.2, Ur Leukocyte Esterase NEG, Ur Microscopic SEDIMENT EXAMINED, Urine RBC RARE, Urine WBC RARE, Ur Epithelial Cells FEW, Urine Bacteria RARE H, Urine Mucus RARE, Urine Hemoglobin SMALL H, Urine Glucose NEG, Urine Test NEGATIVE Comments: 12/13/2017 2:22:26 AM patient is clinically sober and has a CIWA score of 14. Given her history of withdrawal seizures and feel she now qualifies for inpatient alcohol detoxification according to the [facility] emergency medicine alcohol detoxification protocol. She will require preauthorization in the morning. (Jahaira PISANO,Jakob Bullock) Departure Departure Disposition: STILL A PATIENT Condition: Stable Clinical Impression Primary Impression: Alcohol withdrawal syndrome without complication Referrals: Patient Has No Primary Care Dr (PCP/Family) Departure Forms: Customer Survey General Discharge Information (Jakob Campo MD) Departure Comments 12/13/17 12:50 PM The patient was signed out to me by Dr. Campo at 7 AM. She is pending case management approval for alcohol detox admission. She is currently on the Ativan protocol. (Jakob Garnett DO) Critical Care Note Critical Care Note Critical Care Time: 30-74 min (Jakob Campo MD)
--- NOTE | 2017-12-12 20:51 | ED PSY CRISIS COLLATERAL NOTE ---
Collateral Note Collateral Note Family/Inform/Tu Contacts: Spoke with pt's brother Chinmay Michael [phone]. He reported he put his sister in an Uber and sent her to the hospital "a couple hours" ago at her request. he reported that his sister had "been an alcoholic" for 20 years and had been in every 30 day program in the state. He reported he feel she needs to be in a 30 day treatment program followed by a sober house as he stated this is the only thing that works to keep her sober. He reported that she was so drunk she could barely stand up before she left. He reported she has been psychiatrically hospitalized in the past mostly at [facility] and [facility]. She was most recently hospitalized 3 weeks ago at [facility]. He denied that she is actively suicidal but stated "she drinks to the point where he thinks that she subconsciously wants to " and he believes she has problems with depression. He reported that when she is referred to IOP after her hospitalizations, she does not go and won't go. He stated the only thing that works for her is a monitored facility.
[2017-12-12 21:11] VITALS: BP 134/74
[2017-12-12 21:22] LABS: ABSOLUTE BASOPHIL COUNT 0 /CUMM (0.0-0.2); ABSOLUTE EOSINOPHIL COUNT 0.1 /CUMM (0.0-0.7); ABSOLUTE GRANULOCYTE CT 4.3 /CUMM (1.4-6.5); ABSOLUTE MONOCYTE COUNT 0.3 /CUMM (0.10-0.60); BASOPHIL % 0.9 % (0.0-2.0); EOSINOPHIL % 1.5 % (0-5); GRANULOCYTE % 75.4 % (42.2-75.2); HEMATOCRIT 37.3 % (37-47); MEAN CORPUSCULAR HGB 35.1 PG (27.0-31.0); MEAN CORPUSCULAR HGB CONC 33.7 G/DL (33.0-37.0); MEAN CORPUSCULAR VOLUME 104.1 FL (81.0-99.0); MEAN PLATELET VOLUME 7.7 FL (7.4-10.4); PLATELET COUNT 136 /CUMM (130-400); RED BLOOD CELL CT 3.58 /CUMM (4.20-5.40); WHITE BLOOD CELL COUNT 5.7 /CUMM (4.8-10.8)
[2017-12-12 22:00] VITALS: BP 130/84
[2017-12-13] VITALS (7 sets, daily range): BP systolic 141–186; BP diastolic 78–104
[2017-12-13] MEDS ORDERED: CLONAZEPAM1 M2 PO (13:33)
[2017-12-13] MEDS ORDERED: GABAPENTIN300 M2 PO (13:33)
[2017-12-13] MEDS ORDERED: ESCITALOPRAM OX20 MG PO (13:35)
--- NOTE | 2017-12-13 15:01 | History & Physical ---
Vini Manzano 12/13/17 1458: General Information and HPI History of Present Illness: Ms. Fernández is a 56-year-old female with past medical history significant for nicotine dependence (1PPD x 4 yrs), alcohol abuse, multiple hospital admissions for alcohol detoxification, gastric ulcer, alcohol dependence, alcohol withdrawal seizures, Lyme disease, anxiety, depression who presents to the ED for alcohol detoxification. Patient reports she drinks 1 "big bottle" of vodka daily intermittently for > 4 months. She had a recent admission for alcohol withdrawal at [facility] ([place] and was just discharged after 3 days. Patient reports she continued to drank after discharge and her last drink was yesterday. She reports nausea and poor appetite for the last 7 days. She also reports seizures due to withdrawal, last seizure the day before her admission at [facility]. Patient reports she is not on any seizure medication and never required any. She never required intubations or ICU admissions. She reports a fall 3 weeks ago due to alcohol use. She denies fever, chills, chest pain, SOB, jerky movements, vomiting, abdominal pain, urinary or bowel incontinence. Allergies/Medications Allergies: Coded Allergies: diphenhydramine (Mild, HEART RACES, RASH 01/22/17) Home Med list Clonazepam 1 MG TABLET 1 TAB PO TIDPRN ANXIETY (Reported) 1 1/2 TID ANXIETY Escitalopram Oxalate 20 MG TABLET 1 TAB PO DAILY ANXIETY (Reported) Gabapentin 300 MG CAPSULE 1 CAP PO TID MENTAL HEALTH (Reported) Trazodone HCl 100 MG TABLET 100 MG PO AT BEDTIME sleep Past History Travel History Traveled to [place] past 21 day No Medical History Neurological: seizure EENT: NONE Cardiovascular: NONE Respiratory: NONE Gastrointestinal: gastric ulcer Hepatic: NONE Renal: NONE Musculoskeletal: NONE Psychiatric: alcohol dependence Endocrine: NONE Blood Disorders: NONE Cancer(s): NONE VP DATA/Reproductive: NONE History of MRSA: No History of VRE: No History of CDIFF: No Isolation History: Standard Influenza Vaccine: 12/19/12 Surgical History Surgical History: non-contributory Past Family/Social History Family History Relations & Conditions if any MOTHER (some cancer). FATHER (Alcohol abuse). Psychosocial History Services at Home: None ETOH Use: alcoholic Illicit Drug Use: denies illicit drug use Review of Systems Review of Systems Constitutional: Reports: see HPI. Exam & Diagnostic Data Last 24 Hrs of Vital Signs/I&O Vital Signs Date Time Temp Pulse Resp B/P B/P Pulse O2 O2 Flow FiO2 Mean Ox Delivery Rate 12/13 1455 98.5 72 22 150/91 99 Room Air 12/13 1307 96.2 80 22 158/100 12/13 1059 98.5 85 16 147/71 12/13 0913 99.0 62 18 153/75 96 Room Air 12/13 0703 99.0 73 18 141/83 12/13 0702 99.0 73 18 141/83 94 Room Air 12/13 0550 98.6 74 18 150/78 12/13 0550 98.6 74 18 150/78 95 Room Air 12/13 0432 99.0 78 20 157/78 12/13 0432 99.0 78 20 157/78 95 12/13 0208 98.8 90 20 146/84 12/13 0207 98.8 90 20 146/84 97 Room Air 12/12 2200 98.2 70 18 130/84 12/12 2140 98.2 70 18 130/84 96 Room Air 12/12 2111 98.3 78 18 134/74 12/12 1835 98.0 73 18 134/94 96 Room Air Intake & Output 12/13 1600 12/13 0800 12/13 0000 Intake Total Output Total Balance Patient 160 lb Weight Weight Reported by Patient Measurement Method Physical Exam General Appearance Alert, Oriented X3, Cooperative Cardiovascular Regular Rate, Normal S1, Normal S2, No Murmurs Lungs Clear to Auscultation, Normal Air Movement Abdomen Normal Bowel Sounds, Soft, No Tenderness Extremities Trace edema Breasts Rash Last 24 Hrs of Labs/Lele: Laboratory Tests 12/12/172105: Anion Gap 15, Estimated GFR > 60, BUN/Creatinine Ratio 8.8, Glucose 96, Calcium 9.3, Total Bilirubin 0.6, AST 88 H, ALT 94 H, Alkaline Phosphatase 60, Total Protein 7.4, Albumin 4.6, Globulin 2.8, Albumin/Globulin Ratio 1.6, CBC w Diff NO MAN DIFF REQ, RBC 3.58 L, MCV 104.1 H, MCH 35.1 H, MCHC 33.7, RDW 18.0 H, MPV 7.7, Gran % 75.4 H, Lymphocytes % 17.6 L, Monocytes % 4.6, Eosinophils % 1.5, Basophils % 0.9, Absolute Granulocytes 4.3, Absolute Lymphocytes 1.0 L, Absolute Monocytes 0.3, Absolute Eosinophils 0.1, Absolute Basophils 0, Serum Alcohol 259.0 12/12/17 1922: Urine Opiates Screen < 100, Methadone Screen 42, Barbiturate Screen < 60, Ur Phencyclidine Scrn < 6.00, Amphetamines Screen < 100, U Benzodiazepines Scrn 151 , Urine Cocaine Screen < 50, Urine Cannabis Screen < 5.00, Urine Color YEL, Urine Clarity CLEAR, Urine pH 6.5, Ur Specific [place] <= 1.005, Urine Protein 30 H, Urine Ketones NEG, Urine Nitrite NEG, Urine Bilirubin NEG, Urine Urobilinogen 0.2, Ur Leukocyte Esterase NEG, Ur Microscopic SEDIMENT EXAMINED, Urine RBC RARE, Urine WBC RARE, Ur Epithelial Cells FEW, Urine Bacteria RARE H, Urine Mucus RARE, Urine Hemoglobin SMALL H, Urine Glucose NEG, Urine Test NEGATIVE Assessment/Plan Assessment: Ms. Fernández is a 56-year-old female with past medical history significant for nicotine dependence, alcohol abuse, multiple hospital admissions for alcohol detoxification, gastric ulcer, alcohol dependence, alcohol withdrawal seizures, Lyme disease, anxiety, depression who presents for alcohol detoxification Problem list: Alcohol withdrawal/detoxification Nicotine dependence Plan: Admit to general Ativan as per CIWA protocol Nicotine patch Continue home medications Psych consult Seizure precautions Banana bag for vitamin supplementation IV Zofran for nausea DVT prophylaxis: ALPS Code: FULL As Ranked By This Provider Problem List: 1. Alcohol dependence with withdrawal 2. Alcohol abuse Core Measures/Misc (06/16) Acute Coronary Syndrome ACS Diagnosis: No Congestive Heart Failure Congestive Heart Failure Diagnosis No Cerebrovascular Accident CVA/TIA Diagnosis: No VTE (View Protocol) VTE Risk Factors Age>40 No Mechanical VTE Prophylaxis d/t N/A MechProphylax Ordered No VTE Pharm Prophylaxis d/t NA PharmProphylax ordered Sepsis (View protocol) Sepsis Present: No Sara An MD 12/13/17 1551: Attending MD Review Statement Attending Statement Attending MD Statement: examined this patient, discuss w/resident/PA/DRILL OPERATOR PNEUMATIC, agreed w/resident/PA/DRILL OPERATOR PNEUMATIC, reviewed EMR data (avail) Attending Assessment/Plan: 57F PMH EtOH abuse with history of withdrawal seizure being admitted for alcohol withdrawal, CIWA of 8 in ED, on PO Ativan, will monitor electrolytes, monitor for impending DT's, DVT PPx [facility] 12/13/171909: General Information and HPI MD Statement: I have seen and personally examined DEYVI LEWIS and documented this H&P. The patient is a 57 year old F who presented with a patient stated chief complaint of []. Resident Review Statement Resident Statement: examined this patient, discussed with industrial design intern, agreed with industrial design intern, reviewed EMR data (avail), discussed with nursing Other Findings: 56 year old smoker female with a PMH of depression, anxiety, and alcohol abuse who presented for alcohol withdrawal symptoms. The patient reported 3 previous admission for the same exact reason with the last one being 2 weeks ago. Her previous alcohol withdrawal was complicated by seizure but she denies intubation , DT, hallucination, or ICU admission. The patient drinks average of 1 vodka bottle daily, her last drink was yesterday. She reports nausea but denies abdominal pain, vomiting, fever or chills. She denies chest pain, palpitation, or shortness breath. She had a fall 3 weeks ago that led to multiple left sided residual muscular pain. Assessment Patient presented for alcohol detox, serum alcohol level is 259 however she started withdrawing with the heights CIWA score being 19. She has a history of alcohol withdrawal related seizure. She is also complaining of anxiety and depression which most likely exacerbated by alcohol withdrawal symptom. Mild transaminitis most likely secondary to alcohol. Plan * Admit to general medicine floor * Supplements with banana bag * IV Ativan as per CIWA protocol * Zofran when necessary for nausea * Seizure precaution * BEP daily, close eye on potassium. * Repeat liver function tests prior to discharge * DVT prophylaxis mechanical and pharmacological. * Social consult * Psychiatric consult. * Regular diet as tolerated * Full code
[2017-12-14] VITALS (12 sets, daily range): BP systolic 130–169; BP diastolic 80–107
--- NOTE | 2017-12-14 06:14 | PN- Housestaff ---
Ayaan PISANO,[facility] 12/14/17 0614: Subjective Follow-up For: Alcohol detox Subjective: Afebrile, hemodynamically stable, saturating well on room air. This morning patient looked anxious. She is complaining of mild headache and right shoulder pain secondary to fall 3 weeks ago. She denies any other current active complaints Review of Systems Constitutional: Reports: see HPI. Objective Last 24 Hrs of Vital Signs/I&O Vital Signs Date Time Temp Pulse Resp B/P B/P Pulse O2 O2 Flow FiO2 Mean Ox Delivery Rate 12/14 0559 98.7 53 20 138/84 94 12/13 2351 62 18 146/87 96 Room Air 12/13 2210 97.5 65 20 166/104 98 Room Air 12/13 1920 98.5 62 18 143/80 99 Room Air 12/13 1719 97.6 74 18 142/72 97 Room Air 12/13 1455 98.5 72 22 150/91 99 Room Air 12/13 1307 96.2 80 22 158/100 12/13 1059 98.5 85 16 147/71 12/13 0913 99.0 62 18 153/75 96 Room Air Intake & Output 12/14 0800 12/14 0000 12/13 1600 Intake Total 825 Output Total Balance 825 Intake, IV 375 Intake, Oral 450 Patient 61.689 kg Weight Weight Reported by Patient Measurement Method Physical Exam General Appearance: Alert, Oriented X3, Cooperative, No Acute Distress Skin: No Rashes HEENT: Atraumatic, PERRLA, EOMI, Mucous Membr. moist/pink Neck: No JVD Lungs: Clear to Auscultation, Normal Air Movement Abdomen: Soft, No Tenderness Neurological: Normal Speech, hand tremors Extremities: No Clubbing, No Cyanosis, No Edema Current Medications: Current Medications Sig/Dolly Start time Last Medication Dose Route Stop Time Status Admin Acetaminophen 325 MG ONCE ONE 12/13 1845 DC 12/13 PO 12/13 184 1850 Cyanocobalamin/ 1 BAG DAILY 12/13 1727 AC 12/13 Thiamine/Pyridoxine IV 1903 Sodium Chloride 1,000 ML Enoxaparin Sodium 40 MG DAILY 12/14 1000 AC SC Escitalopram Oxalate 20 MG DAILY 12/14 1000 AC PO Gabapentin 300 MG TID 12/13 2200 AC 12/13 PO 2050 Ibuprofen 400 MG ONCE ONE 12/14 0515 DC 12/14 PO 12/14 0516 0530 Lorazepam 2 MG Q6 12/13 2359 AC 12/14 PO 0530 Lorazepam 0 Q1P PRN 12/13 2300 AC 12/14 IV 0743 Lorazepam 0 .STK-MED ONE 12/13 1615 DC PO Lorazepam 0 .STK-MED ONE 12/13 1325 DC PO Lorazepam 0 .STK-MED ONE 12/13 0856 DC PO Lorazepam 2 MG STAT STA 12/13 0830 DC 12/13 PO 12/13 0831 0855 Lorazepam 2 MG Q2P PRN 12/13 0445 DC 12/13 PO 2050 Lorazepam 1 MG Q2P PRN 12/13 0445 DC 12/13 PO 1850 Metoclopramide HCl 10 MG ONCE ONE 12/13 2230 DC 12/13 IV 12/13 2231 2242 Ondansetron HCl 0 .STK-MED ONE 12/13 1615 DC PO Ondansetron HCl 4 MG ONCE ONE 12/13 1600 DC 12/13 PO 12/13 1601 1615 Trazodone HCl 100 MG AT BEDTIME 12/13 2200 AC 12/13 PO 205 Assessment/Plan Assessment: 56 year old smoker female with a PMH of depression, anxiety, and alcohol abuse who presented for alcohol withdrawal symptoms. The patient reported 3 previous admission for the same exact reason with the last one being 2 weeks ago. Her previous alcohol withdrawal was complicated by seizure but she denies intubation , DT, hallucination, or ICU admission. The patient drinks average of 1 vodka bottle daily, her last drink was yesterday. She reports nausea but denies abdominal pain, vomiting, fever or chills. She denies chest pain, palpitation, or shortness breath. She had a fall 3 weeks ago that led to multiple left sided residual muscular pain. Assessment Patient presented for alcohol detox, serum alcohol level is 259 however she started withdrawing with the heights CIWA score being 19. She has a history of alcohol withdrawal related seizure. She is also complaining of anxiety and depression which most likely exacerbated by alcohol withdrawal symptom. Mild transaminitis most likely secondary to alcohol. Plan * Continue supplements with banana bag, until tolerate oral intake * IV Ativan as per CIWA protocol * Zofran when necessary for nausea * Seizure precaution, given history of seizure * BEP daily * Repeat liver function tests prior to discharge * DVT prophylaxis mechanical and pharmacological. * Social consult * Psychiatric consult. * Regular diet as tolerated * Full code Problem List: 1. Alcohol withdrawal syndrome without complication 2. Depression Pain Ratin Pain Location: Right shoulder Pain Goal: Remain pain free Pain Plan: Ibuprofen Tomorrow's Labs & Rationales: ANGELI Mejia MD,Amir 12/14/17 1205: Attending MD Review Statement Attending Statement Attending MD Statement: examined this patient, discuss w/resident/PA/INSULATION TECHNICIAN, agreed w/resident/PA/INSULATION TECHNICIAN, reviewed EMR data (avail), discussed with nursing Attending Assessment/Plan: Pt was seen and examined. Chart reviewed. Pt reports ongoing depression and anxiety. Denies f/u with any Psych. She reportedly sustained a fall and injured her neck/rt shoulder/coccyx/foot --Need Psych eval and follow up --SW consult --Cont CIWA and pain mgmt --rest of the plan as per resident's note
[2017-12-15] VITALS (10 sets, daily range): BP systolic 138–160; BP diastolic 82–93
--- NOTE | 2017-12-15 08:37 | PN- Housestaff ---
Rosalie PISANO,Chinmay 12/15/17 0836: Subjective Follow-up For: Alcohol detox Subjective: Patient was seen and examined at bedside. She is complaining of anxiety and left-sided shoulder pain, which was relieved by ibuprofen last night. She is concerned that she has not been seen by a psychiatrist. She has no new complaints. Review of Systems Constitutional: Reports: no symptoms. EENTM: Reports: no symptoms. Cardiovascular: Reports: no symptoms. Respiratory: Reports: no symptoms. Gastrointestinal: Reports: no symptoms. Genitourinary: Reports: no symptoms. Musculoskeletal: Reports: see HPI, joint pain (L shoulder). Objective Last 24 Hrs of Vital Signs/I&O Vital Signs Date Time Temp Pulse Resp B/P B/P Pulse O2 O2 Flow FiO2 Mean Ox Delivery Rate 12/15 0728 97.9 63 20 143/93 96 12/15 0300 64 152/90 12/14 2210 97.9 65 20 158/92 97 Room Air 12/14 1946 97.5 70 20 166/93 97 Room Air 12/14 1800 97.4 62 20 169/107 12/14 1714 97.4 57 20 169/107 98 Room Air 12/14 1700 97.4 62 20 169/107 12/14 1600 97.9 63 20 130/80 12/14 1422 97.9 63 20 130/84 96 Room Air 12/14 1400 97.8 60 20 136/80 12/14 1200 97.8 60 20 136/80 12/14 1000 98.7 53 20 138/84 Intake & Output 12/15 1600 12/15 0800 12/15 0000 Intake Total 1200 650 Output Total Balance 1200 650 Intake, IV 750 Intake, Oral 450 650 Physical Exam General Appearance: Alert, Oriented X3, Cooperative, No Acute Distress, tremulous Skin Temp/Moisture Exam: Warm/Dry Cardiovascular: Regular Rate, Normal S1, Normal S2 Lungs: Clear to Auscultation, Normal Air Movement Abdomen: Normal Bowel Sounds, Soft, No Tenderness Extremities: L shoulder wtih Limited active and passive ROM secondary to pain, minimal tenderness to palpation Current Medications: Current Medications Sig/Dolly Start time Last Medication Dose Route Stop Time Status Admin Cyanocobalamin/ 1 BAG DAILY 12/13 1727 AC 12/14 Thiamine/Pyridoxine IV 1100 Sodium Chloride 1,000 ML Enoxaparin Sodium 40 MG DAILY 12/14 1000 AC 12/14 SC 0934 Escitalopram Oxalate 20 MG DAILY 12/14 1000 AC 12/14 PO 0932 Gabapentin 300 MG TID 12/13 2200 AC 12/14 PO 2119 Ibuprofen 400 MG ONCE ONE 12/15 0100 DC 12/15 PO 12/15 0101 0058 Ibuprofen 400 MG ONCE ONE 12/14 1230 DC 12/14 PO 12/14 1231 1235 Lorazepam 2 MG Q6 12/13 2359 AC 12/15 PO 0556 Lorazepam 0 Q1P PRN 12/13 2300 AC 12/15 IV 0225 Melatonin 3 MG ONCE ONE 12/15 0100 DC 12/15 PO 12/15 0101 0058 Nicotine 14 MG DAILY 12/14 1030 AC 12/14 TOP 1213 Trazodone HCl 100 MG AT BEDTIME 12/13 2200 AC 12/14 PO 2118 Assessment/Plan Assessment: Patient is a 56-year-old female with a PMH significant for depression, anxiety, alcohol abuse he was admitted for alcohol withdrawal. She's had 3 previous admissions for alcohol detoxification, with history of seizure requiring intubation, and ICU admission. Her last drink was the day prior to admission. #Alcohol withdrawal with history of seizure CIWA scores have been elevated in the last 24 hours ranging from 016 due to anxiety and tremors -Patient currently on 2 mg by mouth Ativan every 6 hours with breakthrough IV as needed. Patient has needed for IV milligrams of IV Ativan in the past 24 hours -Continue with CIWA protocol and current regimen of by mouth Ativan -Psychiatry consult has been placed, follow-up recommendations #Left shoulder pain Continue pain management with ibuprofen, if continues to complain of pain tomorrow consider imaging and with a consult as necessary. #Chronic medical problems -Continue home medications Diet: Heart healthy DVT prophylaxis: Lovenox CODE STATUS: Full code Problem List: 1. Alcohol dependence with withdrawal Pain Ratin Pain Location: L shoulder Pain Goal: Pain 4 or less Pain Plan: ibuprophen Tomorrow's Labs & Rationales: none Mirza Mejia MD 12/15/17 1037: Attending Review Statement Attending Statement Attending Statement: examined this patient, discuss w/resident/PA/NET DEVELOPER WITH WCF, agreed w/resident/PA/NET DEVELOPER WITH [employer], reviewed EMR data (avail), discussed with nursing Attending Assessment/Plan: Reports doing OK. CIWA score elevated. Awaiting Miguel funes
--- NOTE | 2017-12-15 13:46 | ED PSYCHIATRIST/APRN CONSULT ---
Psychiatrist/ADOPTION WORKER ED Consult Assessment and Plan: 57 year old woman with a history of depressive sx, severe alcohol use disorder, admitted with alcohol withdrawal. She has had consistently elevated CIWA scores and remains on ativan 2mg q6 with PRN ativan per CIWA score. She has hx of seizure with intubation (though elsewhere in record noted no intubation hx), and past admissions for DT. She is pleasant coherent and well related. She stated that she feels horrible, that she is lonely and depressed and has burned most of her bridges due to her alcohol use. Buys a large bottle of vodka (not sure if liter of 10/04? ) in the morning and drinks most of the day, this binge lasting 4 months. Has been sober for 6 months out of the last year, and believes this episode of intense drinking has lasted maybe 4-5 years. She lives on her own, her 15 year old daughter lives w/ her brother and has been living w/ brother throughout her drinking binge over the last few years. She needs a drink to clean the house, pay her bills and do any basic functioning. States that she does not do anything apart from drinking. Stopped working a few years ago. Her sister supported her financially but believes will no longer do so. She fell down the stairs a few months ago while sober and had many injuries, some of which are continuing to cause pain. Lonely, anxious and poorly functioning due to her alcohol use. Anhedonia and withdrawal are present. She is not suicidal though states that she wishes that everything was through sometimes, in addition to wondering am I going to tonight from all the alcohol she ingests. She is not psychotic and no evidence of psychotic history. She has no thoughts of harm toward others. Sees an ADOPTION WORKER Naa Lara, from [facility], who prescribes, per her: gabapentin 300mg tid, clonazepam she says either 1mg or 2mg tid, vistaril 25mg PRN anxiety, trazodone 100mg at night time for insomnia, lexapro 20mg oral for depression. Has been on this dose for some time. does not want her contacted at this time. States that last admission to [facility] they contacted her and agreed to continue seeing her, but patient canceled her last appt due to intox and is not sure if she can return. Social Hx: born/raised in [place], HS graduate, went to [employer]. 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 She last worked 5 years ago. an alcoholic and is now . Longest time sober was 13 years when she was and had her daughter at age 42. No other drug use history. Smokes one pack per day. MSE: middle aged woman, yellow sclera, well groomed and appropriate. She is talkative and coherent. Her speech is normal. Her mood is down and affect is full and reactive. Her thinking is long winded but overall goal directed. No evidence of delusional thought process, SI or HI. Not internally preoccupied. She feels depressed and is hopeless and poorly motivated about her future. Her insight is fair and judgment is poor. A: 57 y/o woman w/ severe alcohol use d/o, some depressive sx. She needs termite control technician tx of her alcohol use. We discussed the different options going to a place such as [facility] and [facility], both of which cost 30k or so (her sister paid them before but wont again) which she is happy to go to in order to maintain sobriety; going to a place that her Husky will pay for; trying AA and sobriety on her own. We also discussed psychiatric admission if her depression becomes more severe or she cannot function. She was not very interested in any of those options, stating that the state rehab facilities are useless and they only watch TV there, though she stated she would consider them. Rec: At this time, I believe that an alcohol rehab place is more appropriate than psychiatric admission, though this may change if she continues to be withdrawn, depressed or becomes hopeless about her future. SW consult please for discussion of available substance use facilities available. Medications: she is on low dose of antidepressants and sleep aid which appears to be appropriate. We discussed a taper of clonazepam as an outpatient with her provider; I educated her about long-term fx of bz and etoh on cognition and risk of mixing both meds. Psychiatry consult team will follow up w/ her during the week.
[2017-12-16 05:46] VITALS: BP 130/70
--- NOTE | 2017-12-16 07:18 | PN- Housestaff ---
Vini Manzano 12/16/17 0718: Subjective Follow-up For: Alcohol detox R arm pain Subjective: Patient reports she feels as though she will continue to drink once discharged and does not feel that her alcohol withdrawal symptoms are being adequately addressed. She also reports L arm pain due to previous fall 3 wks ago CIWA 0-4 overnight Review of Systems Constitutional: Reports: see HPI. Objective Last 24 Hrs of Vital Signs/I&O Vital Signs Date Time Temp Pulse Resp B/P B/P Pulse O2 O2 Flow FiO2 Mean Ox Delivery Rate 12/16 0546 98.2 60 18 130/70 97 Room Air 12/15 1800 97.8 53 20 160/82 12/15 1600 97.8 53 20 160/82 12/15 1422 97.8 53 20 160/82 97 Room Air 12/15 1400 97.8 533 20 160/82 12/15 1300 97.8 53 20 138/88 12/15 1200 97.6 66 20 138/88 12/15 1000 97.9 63 20 143/93 Intake & Output 12/16 1600 12/16 0800 12/16 0000 Intake Total 490 750 Output Total Balance 490 750 Intake, IV 10 270 Intake, Oral 480 480 Number 0 0 Bowel Movements Physical Exam General Appearance: Alert, Oriented X3, Cooperative Cardiovascular: Regular Rate, Normal S1, Normal S2, No Murmurs Lungs: Clear to Auscultation, Normal Air Movement Abdomen: Normal Bowel Sounds, Soft, No Tenderness Extremities: L arm limited ROM due to pain Current Medications: Current Medications Sig/Dolly Start time Last Medication Dose Route Stop Time Status Admin Cyanocobalamin/ 1 BAG DAILY 12/13 1727 AC 12/16 Thiamine/Pyridoxine IV 1019 Sodium Chloride 1,000 ML Enoxaparin Sodium 40 MG DAILY 12/14 1000 AC 12/16 SC 1018 Escitalopram Oxalate 20 MG DAILY 12/14 1000 AC 12/16 PO 1019 Gabapentin 300 MG TID 12/13 2200 AC 12/16 PO 1020 Ibuprofen 400 MG Q6P PRN 12/15 1215 AC 12/16 PO 0631 Lorazepam 1.5 MG Q8 12/16 1400 AC PO Lorazepam 2 MG Q6 12/13 2359 DC 12/16 PO 0536 Lorazepam 0 Q1P PRN 12/13 2300 AC 12/15 IV 2059 Nicotine 14 MG DAILY 12/14 1030 AC 12/16 TOP 1017 Trazodone HCl 100 MG AT BEDTIME 12/13 2200 AC 12/15 PO 2347 Assessment/Plan Assessment: Ms. Fernández is a 56-year-old female with past medical history significant for nicotine dependence, alcohol abuse, multiple hospital admissions for alcohol detoxification, gastric ulcer, alcohol dependence, alcohol withdrawal seizures, Lyme disease, anxiety, depression who presents for alcohol detoxification Problem list: Alcohol withdrawal/detoxification Nicotine dependence Macrocytosis 2/2 alcohol use R arm pain Plan: Ativan as per CIWA protocol, CIWA 0-4 Continue home medications Psych recommendations appreciated Social work recommendations appreciated Seizure precautions Continue Banana bag for vitamin supplementation, Escitalopram, Gabapentin, Trazadone, Nicotine patch OT consult DVT prophylaxis: ALPS Code: FULL Problem List: 1. Alcohol dependence with withdrawal Pain Ratin Pain Location: NA Pain Goal: Remain pain free Pain Plan: NA Tomorrow's Labs & Rationales: None Sara An MD 12/16/17 1357: Attending MD Review Statement Attending Statement Attending MD Statement: examined this patient, discuss w/resident/PA/RESTAURANT BARTENDER, agreed w/resident/PA/RESTAURANT BARTENDER, reviewed EMR data (avail) Attending Assessment/Plan: Significant anxiety today, but CIWA is well controlled. Will continue with taper, stop IV Ativan, follow psychiatry recommendations for anxiety management
[2017-12-16 08:00] VITALS: BP 130/70
[2017-12-16 14:21] VITALS: BP 159/92
--- NOTE | 2017-12-16 15:29 | PN- Psychiatry ---
Assessment/Plan Impression: Pt seen and examined, chart and labs reviewed. This is a 56-year-old female w/ H alcohol dep with multiple detoxes and WD seizure, GI ulcer, Lyme disease, depression and anxiety who self-presented to ED for detox. Pt admitted to floor with elevated CIWA scores. Was sober for 10 years and relapsed 4 years ago. Drinks ~a liter of hard alcohol daily. She has been slightly bizarre, needy demanding and entitled since admit. Asks for iv meds, more ativan despite low CIWA scores. After our interview she was seen wandering halls looking for her doctor to give her more ativan because "RN went to a meeting." During interview pt revealed of her parents early in her life, later abandonment issues, long marriage to alcoholic, loss of her job. Pt revealed obsessional care of her home. Becomes extremely anxious if she does not keep everything completely clean and organized. She has deep unresolved grief over parents' deaths, guilt over not caring for her daughter. At the same time she is not amenable to any state care or facilities she has been to before as they "don't help." Pt categorically denies SI/plan now or in past as she has a daughter. We discussed that she is dual diagnosis and needs to be sober to treat her mood, anxiety and grief over a longer period of time. Pt on clonazepam at home that she gets from [facility] at [place]. Admits that MICROBIOLOGY SUPERVISOR does not know she drinks heavily. Psychoed given that her respiratory system can shut down with this lethal combination. She will not go to certain facilities she considers to be unhelpful. MSE: Middle aged f in [facility] on banana bag. "I *definitely* need IVF." Speech clear, slightly tremulous. Mood depressed Affect anxious and tearful. TP circumstantial TC grief, guilt, i need more ativan. I/ I'm an endstage alcoholic. She voices understanding of her illness yet remains in denial of its seriousness and outcome J/ refusing care unless it is a particular facility Current Medications Sig/Dolly Start time Last Medication Dose Route Stop Time Status Admin Cyanocobalamin/ 1 BAG DAILY 12/13 1727 AC 12/16 Thiamine/Pyridoxine IV 1019 Sodium Chloride 1,000 ML Enoxaparin Sodium 40 MG DAILY 12/14 1000 AC 12/16 SC 1018 Escitalopram Oxalate 20 MG DAILY 12/14 1000 AC 12/16 PO 1019 Gabapentin 300 MG TID 12/13 2200 AC 12/16 PO 1020 Hydroxyzine HCl 25 MG DAILY 12/16 1454 AC PO Ibuprofen 400 MG Q6P PRN 12/15 1215 AC 12/16 PO 1245 Lorazepam 1.5 MG Q8 12/16 1400 AC 12/16 PO 1401 Lorazepam 1 MG Q2P PRN 12/16 1230 AC 12/16 PO 1235 Lorazepam 2 MG Q6 12/13 2359 DC 12/16 PO 0536 Lorazepam 0 Q1P PRN 12/13 2300 DC 12/15 IV 2059 Nicotine 14 MG DAILY 12/14 1030 AC 12/16 TOP 1017 Patient Medication 1 ED ONE ONE 12/16 1430 DC Teaching ED 12/16 1431 Trazodone HCl 100 MG AT BEDTIME 12/13 2200 AC 12/15 PO 2347 Vital Signs Date Time Temp Pulse Resp B/P B/P Pulse O2 O2 Flow FiO2 Mean Ox Delivery Rate 12/16 1421 97.8 67 20 159/92 97 Room Air 12/16 0800 98.2 60 18 130/70 12/16 0546 98.2 60 18 130/70 97 Room Air 12/15 1800 97.8 53 20 160/82 12/15 1600 97.8 53 20 160/82 A/ 57 yo F with alcohol dependence, anxiety and depression, numerous embattled relationships, poor social support who is being counterproductive with entitled demands about her care. P/ -I suspect personality disorder/traits; would keep good clear boundaries, do not allow her to manage her own care, follow objective measures in her treatment as she may have a tendency to "annoy." -Would not send out with benzodiazepines as she is high risk to relapse to alcohol -Allow CIWA to guide her ativan dosing. -Trial 25-50 mg hydroxyzine (?allergy diphenhydramine cross reactivity) q6h prn anxiety. -Monitor vitals/CIWA carefully as you taper ativan. -Pt is not suicidal at this time. Given her severe alcohol dependence, inefficacious treatment for anxiety and depression and relatively poor prognosis given possible personality d/o and poor coping skills a case could be made for her to go to an inpatient psych facility for dual diagnosis (mood/etoh). This should be re-addressed by psych as her thinking about her treatment may evolve during this admission. -It is plausible to send her home if she refuses treatment as long as she denies suicidality. Again, psych will re-assess. Thank you for this consult. Vanessa Max MD #[id number] Suggestion: see impression Subjective Subjective: see impression Objective Last 24 Hrs of Vital Signs/I&O Vital Signs Date Time Temp Pulse Resp B/P B/P Pulse O2 O2 Flow FiO2 Mean Ox Delivery Rate 12/16 1421 97.8 67 20 159/92 97 Room Air 12/16 0800 98.2 60 18 130/70 12/16 0546 98.2 60 18 130/70 97 Room Air 12/15 1800 97.8 53 20 160/82 12/15 1600 97.8 53 20 160/82 Intake & Output 12/16 1600 12/16 0800 12/16 0000 Intake Total 480 490 750 Output Total Balance 480 490 750 Intake, IV 10 270 Intake, Oral 480 480 480 Number 0 0 Bowel Movements
[2017-12-16 21:45] VITALS: BP 165/98
[2017-12-17 07:07] VITALS: BP 133/82
--- NOTE | 2017-12-17 07:39 | PN- Housestaff ---
Vini Manzano 12/17/17 0739: Subjective Follow-up For: Alcohol detox L arm pain Subjective: Patient reports that she feel much better today and slept well. CIWA last night 0-2 Review of Systems Constitutional: Reports: see HPI. Objective Last 24 Hrs of Vital Signs/I&O Vital Signs Date Time Temp Pulse Resp B/P B/P Pulse O2 O2 Flow FiO2 Mean Ox Delivery Rate 12/17 0707 97.7 58 20 133/82 97 Room Air 12/16 2145 98.7 57 18 165/98 98 Room Air 12/16 1421 97.8 67 20 159/92 97 Room Air Intake & Output 12/17 1600 12/17 0800 12/17 0000 Intake Total 240 480 Output Total Balance 240 480 Intake, Oral 240 480 Physical Exam General Appearance: Alert, Oriented X3, Cooperative, No Acute Distress Cardiovascular: Regular Rate, Normal S1, Normal S2, No Murmurs Lungs: Clear to Auscultation, Normal Air Movement Abdomen: Normal Bowel Sounds, Soft, No Tenderness Current Medications: Current Medications Sig/Dolly Start time Last Medication Dose Route Stop Time Status Admin Cyanocobalamin 250 MCG DAILY 12/17 1000 AC 12/17 PO 0947 Cyanocobalamin/ 1 BAG DAILY 12/13 1727 DC 12/16 Thiamine/Pyridoxine IV 1019 Sodium Chloride 1,000 ML Enoxaparin Sodium 40 MG DAILY 12/14 1000 AC 12/17 SC 0827 Escitalopram Oxalate 20 MG DAILY 12/14 1000 AC 12/17 PO 0827 Folic Acid 1 MG DAILY 12/17 1000 AC 12/17 PO 0947 Gabapentin 300 MG TID 12/13 2200 AC 12/17 PO 0827 Hydroxyzine HCl 25 MG DAILY 12/16 1454 AC 12/17 PO 0827 Ibuprofen 400 MG Q6P PRN 12/15 1215 AC 12/16 PO 2126 Lorazepam 1 MG BID 12/17 1000 AC 12/17 PO 0949 Lorazepam 1.5 MG Q8 12/16 1400 DC 12/17 PO 0613 Lorazepam 1 MG Q2P PRN 12/16 1230 AC 12/16 PO 1806 Lorazepam 0 Q1P PRN 12/13 2300 DC 12/15 IV 2059 Multivitamins 1 TAB DAILY 12/17 1000 AC 12/17 PO 0947 Nicotine 14 MG DAILY 12/14 1030 AC 12/17 TOP 0828 Patient Medication 1 ED ONE ONE 12/16 1430 DC 12/16 Teaching ED 12/16 1431 1545 Thiamine HCl 100 MG DAILY 12/17 1000 AC 12/17 PO 0947 Trazodone HCl 100 MG AT BEDTIME 12/13 2200 AC 12/16 PO 2124 Assessment/Plan Assessment: Ms. Fernández is a 56-year-old female with past medical history significant for nicotine dependence, alcohol abuse, multiple hospital admissions for alcohol detoxification, gastric ulcer, alcohol dependence, alcohol withdrawal seizures, Lyme disease, anxiety, depression who presents for alcohol detoxification Problem list: Alcohol withdrawal/detoxification Nicotine dependence Macrocytosis 2/2 alcohol use L arm pain Plan: Ativan as per CIWA protocol, CIWA 0-2 Continue home medications Psych recommendations appreciated Social work recommendations appreciated Seizure precautions Continue vitamin supplementation, Escitalopram, Gabapentin, Trazadone, Nicotine patch OT consult DVT prophylaxis: ALPS Code: FULL Problem List: 1. Alcohol dependence with withdrawal 2. Alcohol withdrawal syndrome without complication Pain Ratin Pain Location: NA Pain Goal: Remain pain free Pain Plan: NA Tomorrow's Labs & Rationales: none Sara An MD 12/17/17 1113: Attending MD Review Statement Attending Statement Attending MD Statement: examined this patient, discuss w/resident/PA/REINSURANCE CLAIMS ANALYST, agreed w/resident/PA/REINSURANCE CLAIMS ANALYST, reviewed EMR data (avail) Attending Assessment/Plan: CIWA scores controlled, will continue Ativan taper, follow psychiatry recommendations, anticipated discharge home tomorrow
--- NOTE | 2017-12-17 11:31 | Patient Discharge Instructions ---
Discharge Instructions General Discharge Information You were seen/treated for: Alcohol detox You had these procedures: NONE Special Instructions: Follow up with outpatient psychiatry upon discharge Check yourself into alcohol rehab as discussed upon discharge Follow up with your PCP within 1-2 weeks after discharge Diet Continue normal diet: Yes Activity Full Activity/No Limits: Yes Acute Coronary Syndrome Inclusion Criteria At DC or during hospital stay patient has or had the following: ACS DIAGNOSIS No Discharge Core Measures Meds if any: Prescribed or Continued at Discharge Meds if any: NOT Prescribed or Continued at Discharge Congestive Heart Failure Inclusion Criteria At DC or during hospital stay patient has or had the following: CHF DIAGNOSIS No Discharge Core Measures Meds if any: Prescribed or Continued at Discharge Meds if any: NOT Prescribed or Continued at Discharge Cerebrovascular accident Inclusion Criteria At DC or during hospital stay patient has or had the following: CVA/TIA Diagnosis No Discharge Core Measures Meds if any: Prescribed or Continued at Discharge Meds if any: NOT Prescribed or Continued at Discharge Venous thromboembolism Inclusion Criteria VTE Diagnosis No VTE Type NONE VTE Confirmed by (Test) NONE Discharge Core Measures - Per Current guidelines, there needs to be overlap - treatment for the first 5 days of Warfarin therapy. - If discharged on Warfarin prior to 5 days of - overlap therapy, the patient will need to be - assessed for post discharge needs including - *Post discharge parental anticoagulation - *Warfarin and/or parental anticoagulation education - *Follow up date to check INR post discharge At least 5 days overlap therapy as Inpatient No Meds if any: Prescribed or Continued at Discharge Note: Overlap Therapy is Warfarin and Anticoagulant Meds if any: NOT Prescribed or Continued at Discharge
[2017-12-17] MEDS ORDERED: VITAMIN B-12250 MCG PO (13:26)
[2017-12-17] MEDS ORDERED: IBUPROFEN400 M1 PO (13:26)
[2017-12-17] MEDS ORDERED: VITAMIN B-1100 MG PO (13:26)
[2017-12-17] MEDS ORDERED: NICOTINE PATCH1 EAC2 TOP (13:26)
[2017-12-17] MEDS ORDERED: FOLIC ACID1 M1 PO (13:26)
[2017-12-17] MEDS ORDERED: ONE DAILY MULT1 EAC2 PO (13:26)
[2017-12-17 14:09] VITALS: BP 147/76
[2017-12-17] MEDS ORDERED: HYDROXYZINE HCL25 M2 PO (15:39)
[2017-12-17] MEDS ORDERED: ATIVAN1 M1 PO (15:39)
--- NOTE | 2017-12-17 16:00 | Discharge Summary ---
Visit Information Visit Dates Admission Date: 12/13/17 Discharge Date: 12/17/17 Hospital Course Course Attending Physician: Sara An MD Primary Care Physician: Patient Has No Primary Care Dr Hospital Course: Ms. Fernández is a 56-year-old female with past medical history significant for nicotine dependence, alcohol abuse, multiple hospital admissions for alcohol detoxification, gastric ulcer, alcohol dependence, alcohol withdrawal seizures, Lyme disease, anxiety, depression who presents for alcohol detoxification. Psych and Social work was consulted. She was placed on seizure precautions. Her home medications were continued except Clonazepam. Ativan was dosed as per [facility] protocol and eventually tapered. She declined a scheduled appointment to an IOP and asserted that she will follow up with a program of her choice. She was sent home with the remaining tapered dose. She was discharged home with vitamin supplementation and a nicotine patch. Allergies: Coded Allergies: diphenhydramine (Mild, HEART RACES, RASH 01/22/17) Disposition Summary Disposition Principal Diagnosis: Alcohol detoxification Additional Diagnosis: none Discharge Disposition: home or self care Discharge Instructions General Discharge Information Code Status: Full Code Patient's Diet: Regular Patient's Activity: Full Follow-Up Instructions/Appts: Follow up with outpatient psychiatry upon discharge Check yourself into alcohol rehab as discussed upon discharge Follow up with your PCP within 1-2 weeks after discharge Medications at Discharge Discharge Medications: Continue taking these medications: Trazodone HCl (Trazodone HCl) 100 MG TABLET 100 Milligram ORAL AT BEDTIME Qty = 30 Comments: Last Taken:11/18/17 Time:9:24P.M Clonazepam (Clonazepam) 1 MG TABLET 1 Tablet ORAL THREE TIMES A DAY NEEDED Qty = 135 Instructions: 1 /2 TID ANXIETY Comments: NOT GIVEN THIS ADMISSION Gabapentin (Gabapentin) 300 MG CAPSULE 1 Capsule ORAL THREE TIMES DAILY Qty = 90 Comments: Last Taken:12/17/17 Time:8:30A.M Escitalopram Oxalate (Escitalopram Oxalate) 20 MG TABLET 1 Tablet ORAL DAILY Qty = 45 Comments: Last Taken:12/17/17 Time:8:30A.M Start taking the following new medications: Nicotine (Nicotine Patch) 14 MG/24 HOUR PATCH.TD24 14 Milligram On the skin DAILY Qty = 7 No Refills Comments: Last Taken:12/17/17 Time:8:30A.M Ibuprofen (Ibuprofen) 400 MG TABLET 400 Milligram ORAL EVERY SIX HOURS NEEDED as needed for PAIN Qty = 15 No Refills Comments: Last Taken:12/16/17 Time:9:30 PM Cyanocobalamin (Vitamin B-12) (Vitamin B-12) 250 MCG TABLET 250 Microgram ORAL DAILY Qty = 30 No Refills Comments: Last Taken:12/17/17 Time:9:47A.M Folic Acid (Folic Acid) 1 MG TABLET 1 Milligram ORAL DAILY Qty = 30 No Refills Comments: Last Taken:12/17/17 Time:9:47A.M Thiamine HCl (Vitamin B-1) 100 MG TABLET 100 Milligram ORAL DAILY Qty = 30 No Refills Comments: Last Taken:12/17/17 Time:9:47A.M Multivitamin (One Daily Multivitamin) 1 EACH TABLET 1 Tablet ORAL DAILY Qty = 30 No Refills Comments: Last Taken:12/17/17 Time:9:47A.M LORazepam (Ativan) 1 MG TAB 1 Milligram ORAL TWICE DAILY Qty = 2 No Refills Comments: Last Taken:12/17/17 Time:6 AM Hydroxyzine Hydrochloride (Atarax) 25 MG TAB 25 Milligram ORAL EVERY 8 HOURS NEEDED as needed for ANXIETY Qty = 10 No Refills Comments: Last Taken:12/17/17 Time:1 PM Copies To: Vanessa Yip MD Qty = 10 No Refills Comments: Last Taken:12/17/17 Time:1 PM Copies To: Vanessa Yip MD
== END 2017-12-17 17:10 | DRG 775 ==
LOC: ERH 18:15 → 2NB 12-13 14:13 → ERHI 12-13 14:13 → ENRESERV 12-13 18:15 → CANRESERV 12-13 18:15 → ENRESERV 12-13 18:39 → ENTRNSPT 12-13 19:34 → 2NB 12-13 19:40 → CMPTRNSPT 12-13 20:07 → ENTRNSPT 12-17 16:46 → EDTRNSPTSTS 12-17 17:02 → EDTRNSPT 12-17 17:02 → 2NB 12-17 17:10 → CMPTRNSPT 12-17 17:26
PROVIDERS: Physician Assistant Medical
DX: F10.239 Alcohol dependence with withdrawal, unspecified (principal); Y90.8 Blood alcohol level of 240 mg/100 ml or more; A69.20 Lyme disease, unspecified; R74.0 Nonspecific elevation of levels of transaminase and lactic acid dehydrogenase [LDH]; F17.200 Nicotine dependence, unspecified, uncomplicated; F32.9 Major depressive disorder, single episode, unspecified; F41.9 Anxiety disorder, unspecified; Z91.048 Other nonmedicinal substance allergy status; D75.89 Other specified diseases of blood and blood-forming organs; K25.9 Gastric ulcer, unspecified as acute or chronic, without hemorrhage or perforation
CPT/HCPCS: 2NBP; 80307; 81001; 81025; 82436; 93005; 93010; 97165-GO; G0480; J1650; J2765; J3101; J3490